=== PATIENT | female | born 1990 | race Caucasian/White ===

== ENCOUNTER 2016-08-25 17:10 | Observation (INO) | payer SELFPAY ==
[2016-08-25] MEDS ORDERED: IV RINGERS,LACTATED 1000ML 1,000 ML IV SCH (17:50)
[2016-08-25 17:59] LABS: BILIRUBIN,URINE NEGATIVE (NEG); GLUCOSE,URINE NEGATIVE (NEG); NITRITE,URINE NEGATIVE (NEG); PROTEIN,URINE NEGATIVE (NEG-TRACE); UROBILINOGEN,URINE 0.2 mg/dL (0.2 mg/dL)
[2016-08-25 18:21] LABS: BACTERIA,URINE FEW /HPF (0-FEW); RBC,URINE 0 /HPF (0-2); SQUAMOUS EPITHELIAL CELL,UR FEW /LPF
== END 2016-08-25 18:45 | disposition home or self-care (01) ==
LOC: 3 SO LND 17:10
PROVIDERS: ADMIT Obstetrics & Gynecology; ATTEND Obstetrics & Gynecology
DX: O26.892 Other specified pregnancy related conditions, second trimester (principal); R10.9 Unspecified abdominal pain; R21 Rash and other nonspecific skin eruption; M54.9 Dorsalgia, unspecified; Z3A.20 20 weeks gestation of pregnancy
CPT/HCPCS: 81001; 87086; G0378; G0379

== ENCOUNTER 2017-01-26 14:02 | Emergency (ER) | payer OTHER ==
[~2017-01-26] VITALS: Ht 170.2 cm; Wt 79.4 kg
[2017-01-26 14:45] LABS: BILIRUBIN,URINE NEGATIVE (NEG); GLUCOSE,URINE NEGATIVE (NEG); NITRITE,URINE NEGATIVE (NEG); PH,URINE 7.5; PROTEIN,URINE NEGATIVE (NEG-TRACE); UROBILINOGEN,URINE 0.2 mg/dL (0.2 mg/dL)
[2017-01-26 14:48] LABS: NEG OBC UR NEG; POS OBC UR POS
[2017-01-26 14:53] LABS: BACTERIA,URINE FEW /HPF (0-FEW); RBC,URINE 0 /HPF (0-2); SQUAMOUS EPITHELIAL CELL,UR OCC /LPF
[2017-01-26] MEDS ORDERED: fentaNYL PF VIAL 100 MCG/2 ML VIAL IV ONE (15:00)
--- NOTE | 2017-01-26 15:02 | PHYS DOC ---
Past Medical History Past Medical History: Anxiety, Asthma Past Surgical History: Cholecystectomy Alcohol Use: None Drug Use: Marijuana Adult General Chief Complaint Chief Complaint: abdominal pain HPI HPI Patient is a 26 year old female who presents with left lower abdominal pain. She's had this pain intermittently for months, worsens with movement, rotation, sitting up or using abdominal muscles. She was previously with the pain and told that it would resolve after delivering. She had a normal vaginal delivery one month ago but the pain has returned and is worse. She is taking ibuprofen and Tylenol without relief of her symptoms, no reported fever or dysuria, she has noted some vaginal discharge, the lochia had resolved and she had some pink tinged discharge. She was treated for Chlamydia early in her . She also reports that she's had loose stools for one month. She was seen at her post delivery appointment and given a shot of antibiotics and placed on Flagyl. 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 sHe was told that she has fibroids Review of Systems Review of Systems Constitutional: Denies fever or chills Eyes: Denies eye pain or discharge HENT: Denies nasal congestion or sore throat Respiratory: Denies cough or shortness of breath [] Cardiovascular: Denies chest pain or edema GI: per hpi : Denies dysuria Musculoskeletal: Denies back pain Extremities: denies joint pain [] Integument: Denies rash Neurologic: Denies headache, denies focal weakness , denies sensory changes [] Current Medications Current Medications Current Medications Medications (Trade) Dose Ordered Sig/Delmer Start Time Stop Time Status Last Admin Dose Admin Fentanyl Citrate (Fentanyl 2ml Vial) 50 mcg 1X ONCE 01/26/17 15:00 01/26/17 15:01 DC 01/26/17 15:58 50 MCG Info (Do NOT chart on this entry -- for MONITORING) 1 each PRN DAILY PRN 01/26/17 15:15 01/28/17 15:14 Iohexol (Omnipaque 300 Mg/ml) 75 ml 1X ONCE 01/26/17 15:15 01/26/17 15:16 DC 01/26/17 15:27 75 ML Allergies Allergies Allergies Coded Allergies Type Severity Reaction Last Updated Verified haloperidol Allergy Severe 08/25/16 Yes ketorolac Allergy Intermediate Itching 08/25/16 Yes Physical Exam Physical Exam Constitutional: Well developed, well nourished, no acute distress, non-toxic appearance. [] HENT: Normocephalic, atraumatic, bilateral external ears normal, oropharynx moist, no oral exudates, nose normal. [] Eyes: PERRLA, EOMI, conjunctiva normal, no discharge. [] Neck: Normal range of motion, no tenderness, supple, no stridor. [] Cardiovascular:Heart rate regular with regular rhythm, no murmur [] Lungs & Thorax: Bilateral breath sounds clear to auscultation, no wheeze or crackles Abdomen: Bowel sounds normal, soft, distended, tenderness palpation the left lower quadrant, no adnexal tenderness , negative McBurney's, no guarding or peritoneal signs : Yellow discharge, no CMT, closed cervix, no blood noted in the vaginal vault , no adnexal tenderness or mass Skin: Warm, dry, no erythema, no rash. [] Back: No tenderness, no CVA tenderness. [] Extremities: No tenderness, no cyanosis, no clubbing, ROM intact, no edema. [] Neurologic: Alert and oriented X 3, normal motor function, normal sensory function, no focal deficits noted. [] Psychologic: Affect normal, judgement normal, mood normal. [] Current Patient Data Vital Signs Vital Signs Date Time Temp Pulse Resp B/P (MAP) Pulse Ox O2 Delivery O2 Flow Rate FiO2 01/26/17 15:58 57 14 137/77 (97) 98 Room Air 01/26/17 14:23 97.7 97.7 Lab Values Laboratory Tests Test 01/26/17 14:35 01/26/17 14:37 01/26/17 15:02 Urine Color Yellow Urine Clarity Clear Urine pH 7.5 Urine Specific [place] 1.025 Urine Protein Negative mg/dL (NEG-TRACE) Urine Glucose (UA) Negative mg/dL (NEG) Urine Ketones (Stick) Negative mg/dL (NEG) Urine Blood Negative (NEG) Urine Nitrite Negative (NEG) Urine Bilirubin Negative (NEG) Urine Urobilinogen Dipstick 0.2 mg/dL (0.2 mg/dL) Urine Leukocyte Esterase Trace (NEG) Urine RBC 0 /HPF (0-2) Urine WBC 1-4 /HPF (0-4) Urine Squamous Epithelial Cells Occ /LPF Urine Bacteria Few /HPF (0-FEW) Urine Mucus Mod /LPF Urine Test Negative (NEG) POC Urine HCG, Qualitative Hcg negative (Negative) White Blood Count 7.8 x10^3/uL (4.0-11.0) Red Blood Count 4.55 x10^6/uL (3.50-5.40) Hemoglobin 13.4 g/dL (12.0-15.5) Hematocrit 40.0 % (36.0-47.0) Mean Corpuscular Volume 88 fL (79-100) Mean Corpuscular Hemoglobin 29 pg (25-35) Mean Corpuscular Hemoglobin Concent 34 g/dL (31-37) Red Cell Distribution Width 13.3 % (11.5-14.5) Platelet Count 306 x10^3/uL (140-400) Neutrophils (%) (Auto) 59 % (31-73) Lymphocytes (%) (Auto) 33 % (24-48) Monocytes (%) (Auto) 6 % (0-9) Eosinophils (%) (Auto) 2 % (0-3) Basophils (%) (Auto) 1 % (0-3) Neutrophils # (Auto) 4.6 x10^3uL (1.8-7.7) Lymphocytes # (Auto) 2.6 x10^3/uL (1.0-4.8) Monocytes # (Auto) 0.4 x10^3/uL (0.0-1.1) Eosinophils # (Auto) 0.2 x10^3/uL (0.0-0.7) Basophils # (Auto) 0.0 x10^3/uL (0.0-0.2) Laboratory Tests 01/26/17 15:02 Microbiology 01/26/17 Wet Prep - Final, Complete EKG EKG [] Radiology/Procedures Radiology/Procedures CT abdomen and pelvis: Impression: No acute abnormality is identified. Course & Med Decision Making Course & Med Decision Making Pertinent Labs and Imaging studies reviewed. (See chart for details) Reports she is not driving, 1 L of IV fluids and fentanyl was given. CT abdomen and pelvis ordered along with lab work and urinalysis. Wet prep sent along with gonorrhea and chlamydia PCR No acute infections, lab abnormality or findings on CT. Pt with possible endometriosis. She has f/u on 02/02, encourage pt's to keep appointment and continue ibuprofen/Tylenol, add heating pad as needed. Dragon Disclaimer Dragon Disclaimer This electronic medical record was generated, in whole or in part, using a voice recognition dictation system. Departure Departure Impression: Primary Impression: Abdominal pain Disposition: 01 HOME, SELF-CARE Condition: STABLE Referrals: NO PCP (PCP) NAY TRACEY MD Jan 26, 2017 15:02
[2017-01-26 15:09] LABS: BASO % 1 % (0-3); EOS % 2 % (0-3); HEMOGLOBIN 13.4 g/dL (12.0-15.5); LYMPH # 2.6 x10^3/uL (1.0-4.8); LYMPH % 33 % (24-48); MEAN CORPUSCULAR HEMOGLOBIN 29 pg (25-35); MEAN CORPUSCULAR HGB CONC 34 g/dL (31-37); MEAN CORPUSCULAR VOLUME 88 fL (79-100); MONO % 6 % (0-9); NEUT % 59 % (31-73); PLATELET COUNT 306 x10^3/uL (140-400); RED BLOOD COUNT 4.55 x10^6/uL (3.50-5.40); RED CELL DISTRIBUTION WIDTH 13.3 % (11.5-14.5); WHITE BLOOD COUNT 7.8 x10^3/uL (4.0-11.0)
[2017-01-26] MEDS ORDERED: IOHEXOL 300 MG/ML 100ML VIAL. IV ONE (15:15)
[2017-01-26] MEDS ORDERED: CONTRAST GIVEN MC PRN (15:15)
--- NOTE | 2017-01-26 16:11 | RAD ---
Indication: Left lower quadrant pain. Axial imaging through the abdomen and pelvis was performed after the administration of intravenous contrast. No prior studies are available for comparison. The lung bases are clear. The liver is unremarkable. The gallbladder is surgically absent. The pancreas and spleen are unremarkable. No adrenal mass is detected. Kidneys are unremarkable. Aorta is nonaneurysmal. The small and large bowel loops are normal caliber. No obstruction is seen. There is no ascites. No inflammatory process is seen. The bladder and uterus are unremarkable. Impression: No acute abnormality is identified.
[2017-01-26] MEDS ORDERED: ONDANSETRON PF 4 MG/2 ML VIAL. IV ONE (16:45)
[2017-01-26] MEDS ORDERED: KETOROLAC 30 MG/ML INJ. IV ONE (16:45)
[2017-01-26 16:59] VITALS: BP 115/67
--- NOTE | 2017-01-28 15:07 | VNOTE ---
CALL BACK NOTE CALL BACK Microbiology 01/26/17 Wet Prep - Final, Complete 01/26/17 Urine Culture - Final, Complete 01/26/17 Urine Culture Result 1 (TOYA) - Final, Complete Patient is positive for chlamydia and was not treated. Called patient spoke to her and gave her results, education and prescription for azithromycin one gram called into [facility] on [address] and state SEA BRAN APRN Jan 28, 2017 15:07
== END 2017-01-26 17:06 | disposition home or self-care (01) ==
LOC: ER 14:02
DX: O90.89 Other complications of the puerperium, not elsewhere classified (principal); R10.32 Left lower quadrant pain; N89.8 Other specified noninflammatory disorders of vagina; J45.909 Unspecified asthma, uncomplicated; F41.9 Anxiety disorder, unspecified; F12.10 Cannabis abuse, uncomplicated; Z90.49 Acquired absence of other specified parts of digestive tract; Z98.890 Other specified postprocedural states; Z88.8 Allergy status to other drugs, medicaments and biological substances
CPT/HCPCS: 36415; 74177; 80047; 81001; 81025; 85025; 87086; 87491; 87591; 96374; 96375; 99285; J1885; J2405; J3010; Q0111; Q9967

== ENCOUNTER 2017-02-09 22:00 | Emergency (ER) | payer OTHER ==
[~2017-02-09] VITALS: Ht 170.2 cm; Wt 79.4 kg
--- NOTE | 2017-02-09 22:21 | PHYS DOC ---
Past Medical History Past Medical History: Anxiety, Asthma Past Surgical History: Cholecystectomy Alcohol Use: None Drug Use: Marijuana Adult General Chief Complaint Chief Complaint: ABDOMINAL PAIN HPI HPI Patient is a 26 year old female who presents with with lower quadrant pain. She states been going on for over a month. She states she had a history of chlamydia for 11 months and nobody treated it. She was treated 2 weeks ago after she gave to her son. She states the pain over the last couple days as gotten worse. She states she's has a history of ovarian cysts. She denies any fevers or chills. She states she's having vaginal bleeding. She states she took her azithromycin as she was prescribed when she was diagnosed with Chlamydia 2 weeks ago. Review of Systems Review of Systems Constitutional: Denies fever or chills [] Eyes: Denies change in visual acuity, redness, or eye pain [] HENT: Denies nasal congestion or sore throat [] Respiratory: Denies cough or shortness of breath [] Cardiovascular: No additional information not addressed in HPI [] GI: Positive for abdominal pain, Deniesnausea, vomiting, bloody stools or diarrhea [] : Denies dysuria or hematuria [] Musculoskeletal: Denies back pain or joint pain [] Integument: Denies rash or skin lesions [] Neurologic: Denies headache, focal weakness or sensory changes [] Endocrine: Denies polyuria or polydipsia [] All other systems were reviewed and found to be within normal limits, except as documented in this note. Current Medications Current Medications Current Medications Medications (Trade) Dose Ordered Sig/Delmer Start Time Stop Time Status Last Admin Dose Admin Acetaminophen/ Hydrocodone Bitart (Lortab 5/325) 2 tab 1X ONCE 02/10/17 02:15 02/10/17 02:16 DC 02/10/17 02:18 2 TAB Fentanyl Citrate (Fentanyl 2ml Vial) 50 mcg PRN Q15MIN PRN 02/09/17 23:00 02/10/17 02:25 DC 02/09/17 23:36 50 MCG Hydromorphone HCl (Dilaudid) 1 mg PRN Q15MIN PRN 02/10/17 00:00 02/10/17 02:25 DC 02/10/17 01:07 1 MG Info (Do NOT chart on this entry -- for MONITORING) 1 each PRN DAILY PRN 12/4/17 23:30 02/10/17 02:25 DC Iohexol (Omnipaque 300 Mg/ml) 75 ml 1X ONCE 02/09/17 23:30 02/09/17 23:31 DC 02/09/17 23:49 75 ML Ondansetron HCl (Zofran) 4 mg 1X ONCE 02/09/17 23:00 02/09/17 23:01 DC 02/09/17 23:00 4 MG Sodium Chloride 1,000 ml @ 1,000 mls/hr Q1H 02/09/17 23:00 02/09/17 23:59 DC 02/09/17 23:00 1,000 MLS/HR Allergies Allergies Allergies Coded Allergies Type Severity Reaction Last Updated Verified haloperidol Allergy Severe 08/25/16 Yes ketorolac Allergy Intermediate Itching 08/25/16 Yes Physical Exam Physical Exam Constitutional: Well developed, well nourished, no acute distress, non-toxic appearance. [] HENT: Normocephalic, atraumatic, bilateral external ears normal, oropharynx moist, no oral exudates, nose normal. [] Eyes: PERRLA, EOMI, conjunctiva normal, no discharge. [] Neck: Normal range of motion, no tenderness, supple, no stridor. [] Cardiovascular:Heart rate regular rhythm, no murmur [] Lungs & Thorax: Bilateral breath sounds clear to auscultation [] Abdomen/pelvic exam: Bowel sounds normal, soft, tender palpation left lower quadrant, no masses, no pulsatile masses. Team Supervisor was present, normal external genitalia, no cervical motion tenderness, left adnexal tenderness appreciated, no vaginal discharge appreciated Skin: Warm, dry, no erythema, no rash. [] Back: No tenderness, no CVA tenderness. [] Extremities: No tenderness, no cyanosis, no clubbing, ROM intact, no edema. [] Neurologic: Alert and oriented X 3, normal motor function, normal sensory function, no focal deficits noted. [] Psychologic: Affect normal, judgement normal, mood normal. [] Current Patient Data Vital Signs Vital Signs Date Time Temp Pulse Resp B/P (MAP) Pulse Ox O2 Delivery O2 Flow Rate FiO2 02/10/17 02:08 114 120/68 (85) 95 Room Air 02/09/17 22:47 98.3 22 98.3 Lab Values Laboratory Tests Test 02/09/17 22:15 02/09/17 22:34 02/09/17 22:40 Urine Collection Type Unknown Urine Color Yellow Urine Clarity Cloudy Urine pH 6.0 Urine Specific [place] 1.020 Urine Protein Negative mg/dL (NEG-TRACE) Urine Glucose (UA) Negative mg/dL (NEG) Urine Ketones (Stick) Negative mg/dL (NEG) Urine Blood Moderate (NEG) Urine Nitrite Negative (NEG) Urine Bilirubin Negative (NEG) Urine Urobilinogen Dipstick 0.2 mg/dL (0.2 mg/dL) Urine Leukocyte Esterase Small (NEG) Urine RBC 0 /HPF (0-2) Urine WBC 1-4 /HPF (0-4) Urine Squamous Epithelial Cells Mod /LPF Urine Bacteria Few /HPF (0-FEW) Urine Mucus Slight /LPF Urine Test Negative (NEG) Urine Opiates Screen Neg (NEG) Urine Methadone Screen Neg (NEG) Urine Barbiturates Neg (NEG) Urine Phencyclidine Screen Neg (NEG) Urine Amphetamine/Methamphetamine Neg (NEG) Urine Benzodiazepines Screen Pos (NEG) Urine Cocaine Screen Neg (NEG) Urine Cannabinoids Screen Pos (NEG) Urine Ethyl Alcohol Neg (NEG) POC Urine HCG, Qualitative Hcg negative (Negative) White Blood Count 7.4 x10^3/uL (4.0-11.0) Red Blood Count 4.57 x10^6/uL (3.50-5.40) Hemoglobin 13.4 g/dL (12.0-15.5) Hematocrit 39.4 % (36.0-47.0) Mean Corpuscular Volume 86 fL (79-100) Mean Corpuscular Hemoglobin 29 pg (25-35) Mean Corpuscular Hemoglobin Concent 34 g/dL (31-37) Red Cell Distribution Width 13.7 % (11.5-14.5) Platelet Count 364 x10^3/uL (140-400) Neutrophils (%) (Auto) 39 % (31-73) Lymphocytes (%) (Auto) 51 % (24-48) H Monocytes (%) (Auto) 6 % (0-9) Eosinophils (%) (Auto) 3 % (0-3) Basophils (%) (Auto) 1 % (0-3) Neutrophils # (Auto) 2.9 x10^3uL (1.8-7.7) Lymphocytes # (Auto) 3.8 x10^3/uL (1.0-4.8) Monocytes # (Auto) 0.4 x10^3/uL (0.0-1.1) Eosinophils # (Auto) 0.2 x10^3/uL (0.0-0.7) Basophils # (Auto) 0.1 x10^3/uL (0.0-0.2) Prothrombin Time 12.4 SEC (11.7-14.0) Prothrombin Time INR 1.0 (0.8-1.1) PTT 32 SEC (24-38) Sodium Level 141 mmol/L (136-145) Potassium Level 4.0 mmol/L (3.5-5.1) Chloride Level 105 mmol/L (98-107) Carbon Dioxide Level 27 mmol/L (21-32) Anion Gap 9 (6-14) Blood Urea Nitrogen 16 mg/dL (7-20) Creatinine 0.9 mg/dL (0.6-1.0) Estimated GFR (Cockcroft-Gault) 75.7 Glucose Level 100 mg/dL (70-99) H Calcium Level 9.2 mg/dL (8.5-10.1) Total Bilirubin 0.3 mg/dL (0.2-1.0) Direct Bilirubin < 0.1 mg/dL (0.0-0.2) Aspartate Amino Transferase (AST) 18 U/L (15-37) Alanine Aminotransferase (ALT) 25 U/L (14-59) Alkaline Phosphatase 60 U/L (46-116) Creatine Kinase 63 U/L (26-192) Total Protein 7.6 g/dL (6.4-8.2) Albumin 3.5 g/dL (3.4-5.0) Lipase 91 U/L (73-393) Laboratory Tests 02/09/17 22:40 Laboratory Tests 02/09/17 22:40 Microbiology 02/10/17 Wet Prep - Final, Complete Microbiology 02/10/17 Wet Prep - Final, Complete EKG EKG [] Radiology/Procedures Radiology/Procedures [facility] [address] [place] [address] IMAGING REPORT Signed PATIENT: MATEO PECK ACCOUNT: [id number] : 1990 LOCATION: ER AGE: 26 SEX: F EXAM STATUS: REG ER ORD. PHYSICIAN: DARIO COURTNEY MD REASON: pelvic pain PROCEDURE: PELVIS COMPLETE INDICATION: PELVIC PAIN ABNORMAL CT COMPARISON: CT from one day prior TECHNIQUE: Grayscale and color ultrasound images uterus and adnexa. Transabdominal and transvaginal images obtained. FINDINGS: Uterus: 101 x 56 x 49 mm. Endometrial Stripe: 8 mm. Right Ovary: 38 x 20 x 14 mm. Left Ovary: 39 x 30 x 28 mm. Vascular flow identified to bilateral ovaries. Trace free fluid is suspected. 26 x 23 mm left ovarian cyst. There is an additional lesion anterior to the left ovary which is not well evaluated on this examination secondary to patient pain IMPRESSION: 1. Left ovarian cyst is identified. 2. In addition there is a lesion anterior to left ovary which is not well evaluated at this time secondary to patient pain and location of the lesion. A follow-up examination could be obtained at a later time to assess this structure given that it could not be well evaluated on this examination. Electronically signed by: Dwayne Gonzalez MD (02/10/2017 1:26 AM) [facility] DICTATED and SIGNED BY: DWAYNE GONZALEZ MD DATE: 02/10/17114 CC: DARIO COURTNEY MD; NO PCP ~ [facility] [address] [place] [address] IMAGING REPORT Signed PATIENT: MATEO PECK ACCOUNT: [id number] : 1990 LOCATION: ER AGE: 26 SEX: F EXAM STATUS: REG ER ORD. PHYSICIAN: DARIO COURTNEY MD REASON: llq pain PROCEDURE: CT ABD PELV W/ IV CONTRST ONLY CT abdomen and pelvis with contrast 02/09/2017 CLINICAL INDICATION: Abdominal pain and nausea. Vaginal bleeding. COMPARISON: CT abdomen and pelvis 01/26/2017 TECHNIQUE: Multiple CT images of the abdomen and pelvis were obtained following the intravenous and ministration of 75 mL Omnipaque 300. DeGraff *One or more of the following individualized dose reduction techniques were utilized for this examination: 1. Automated exposure control. 2. Adjustment of the mA and/or kV according to patient size. 3. Use of iterative reconstruction technique. FINDINGS: Heart size is normal. Visualized lung bases are clear. Liver, spleen, adrenal glands, and pancreas are unremarkable. 2 mm nonobstructive calculus in the inferior pole the right kidney and two 2 mm nonobstructive calculi in the left kidney. Prior cholecystectomy. No intra or extrahepatic biliary ductal dilatation. Abdominal aorta is normal in caliber. No retroperitoneal or mesenteric lymphadenopathy. Small and large bowel loops are normal in caliber without obstruction. Appendix is normal in appearance. No abdominal free fluid. Mildly distended unopacified urinary bladder unremarkable. Uterus is present though incompletely evaluated by CT. There is a left ovarian cystic structure measuring 2.4 cm. Anterior to the left ovary, there is a hypodensity which is not clearly cystic measuring 2.6 x 1.9 cm series 2/image 72. There are no destructive osseous lesions. IMPRESSION: 1. Probable left ovarian cyst and 2.6 cm and a hypodense structure immediately anterior to the left ovary which is not definitively cystic. Although the finding may represent a complicated ovarian or parovarian cyst, ovarian neoplasm cannot be definitively excluded by CT. Transvaginal pelvic ultrasound is recommended for further evaluation. 2. A few nonobstructive bilateral nephrolithiasis. Electronically signed by: John Bradley MD (02/09/2017 11:46 PM) [facility] DICTATED and SIGNED BY: JOHN BRADLEY MD DATE: 02/09/17 3451 CC: DARIO COURTNEY MD; NO PCP ~ [facility] [address] [place] [address] IMAGING REPORT Signed PATIENT: MATEO PECK ACCOUNT: [id number] : 1990 LOCATION: ER AGE: 26 SEX: F EXAM STATUS: REG ER ORD. PHYSICIAN: DARIO COURTNEY MD REASON: llq pain PROCEDURE: CT ABD PELV W/ IV CONTRST ONLY CT abdomen and pelvis with contrast 02/09/2017 CLINICAL INDICATION: Abdominal pain and nausea. Vaginal bleeding. COMPARISON: CT abdomen and pelvis 01/26/2017 TECHNIQUE: Multiple CT images of the abdomen and pelvis were obtained following the intravenous and ministration of 75 mL Omnipaque 300. DeGraff *One or more of the following individualized dose reduction techniques were utilized for this examination: 1. Automated exposure control. 2. Adjustment of the mA and/or kV according to patient size. 3. Use of iterative reconstruction technique. FINDINGS: Heart size is normal. Visualized lung bases are clear. Liver, spleen, adrenal glands, and pancreas are unremarkable. 2 mm nonobstructive calculus in the inferior pole the right kidney and two 2 mm nonobstructive calculi in the left kidney. Prior cholecystectomy. No intra or extrahepatic biliary ductal dilatation. Abdominal aorta is normal in caliber. No retroperitoneal or mesenteric lymphadenopathy. Small and large bowel loops are normal in caliber without obstruction. Appendix is normal in appearance. No abdominal free fluid. Mildly distended unopacified urinary bladder unremarkable. Uterus is present though incompletely evaluated by CT. There is a left ovarian cystic structure measuring 2.4 cm. Anterior to the left ovary, there is a hypodensity which is not clearly cystic measuring 2.6 x 1.9 cm series 2/image 72. There are no destructive osseous lesions. IMPRESSION: 1. Probable left ovarian cyst and 2.6 cm and a hypodense structure immediately anterior to the left ovary which is not definitively cystic. Although the finding may represent a complicated ovarian or parovarian cyst, ovarian neoplasm cannot be definitively excluded by CT. Transvaginal pelvic ultrasound is recommended for further evaluation. 2. A few nonobstructive bilateral nephrolithiasis. Electronically signed by: John Bradley MD (02/09/2017 11:46 PM) [facility] DICTATED and SIGNED BY: JOHN BRADLEY MD DATE: 02/09/17 4758 CC: DARIO COURTNEY MD; NO PCP ~ Impressions: Abdominal pain Course & Med Decision Making Course & Med Decision Making Pertinent Labs and Imaging studies reviewed. (See chart for details) I've offered admission to the patient however she does not want to be admitted to she has children to take care of at home. 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 [place] Disclaimer [place] Disclaimer This electronic medical record was generated, in whole or in part, using a voice recognition dictation system. Departure Departure Impression: Primary Impression: Pelvic pain Disposition: 01 HOME, SELF-CARE Condition: STABLE Referrals: NO PCP (PCP) PAT RICO MD Patient Instructions: Abdominal Pain Additional Instructions: Your blood work and CT scan does not show any acute abnormalities. On ultrasound you have a cyst on your left ovary and another potential mass that needs to be evaluated. I've offered you admission to the hospital help control your pain and you do not want to be admitted. You received IV pain meds and being discharged with [place] which is a narcotic pain med. Please don't drink alcohol or drive your car while taking this medicine as it can impair judgment and make you sleepy. You need to follow-up with Dr. Fernández. Please call her office in the morning and schedule a follow-up appointment. Return back to ER if your pain gets worse, you have high fevers, uncontrolled nausea vomiting, vaginal bleeding or other concerns. Scripts Hydrocodone/Apap 5-325 (NORCO 5-325 TABLET) 1 Each Tablet 1-2 TAB PO PRN Q6HRS Y for PAIN, #12 TAB 0 Refills Prov: DARIO COURTNEY MD 02/10/17 DARIO COURTNEY MD Feb 09, 2017 22:21
[2017-02-09 22:43] LABS: BILIRUBIN,URINE NEGATIVE (NEG); GLUCOSE,URINE NEGATIVE (NEG); NITRITE,URINE NEGATIVE (NEG); PROTEIN,URINE NEGATIVE (NEG-TRACE); UROBILINOGEN,URINE 0.2 mg/dL (0.2 mg/dL)
[2017-02-09 22:49] LABS: NEG OBC UR NEG; POS OBC UR POS
[2017-02-09 22:57] LABS: BASO # 0.1 x10^3/uL (0.0-0.2); BASO % 1 % (0-3); EOS % 3 % (0-3); HEMATOCRIT 39.4 % (36.0-47.0); HEMOGLOBIN 13.4 g/dL (12.0-15.5); LYMPH # 3.8 x10^3/uL (1.0-4.8); LYMPH % 51 % (24-48); MEAN CORPUSCULAR HEMOGLOBIN 29 pg (25-35); MEAN CORPUSCULAR HGB CONC 34 g/dL (31-37); MEAN CORPUSCULAR VOLUME 86 fL (79-100); MONO % 6 % (0-9); NEUT % 39 % (31-73); PLATELET COUNT 364 x10^3/uL (140-400); RED BLOOD COUNT 4.57 x10^6/uL (3.50-5.40); RED CELL DISTRIBUTION WIDTH 13.7 % (11.5-14.5); WHITE BLOOD COUNT 7.4 x10^3/uL (4.0-11.0)
[2017-02-09 22:59] LABS: BACTERIA,URINE FEW /HPF (0-FEW); RBC,URINE 0 /HPF (0-2); SQUAMOUS EPITHELIAL CELL,UR MOD /LPF
[2017-02-09] MEDS ORDERED: ONDANSETRON PF 4 MG/2 ML VIAL. IV ONE (23:00)
[2017-02-09] MEDS ORDERED: IV NORMAL SALINE 1000ML BAG 1,000 ML IV SCH (23:00)
[2017-02-09] MEDS: fentaNYL PF VIAL 100 MCG/2 ML VIAL IV PRN ×2 (23:00→23:36)
[2017-02-09 23:06] LABS: PROTHROMBIN TIME PATIENT 12.4 SEC (11.7-14.0)
[2017-02-09 23:11] LABS: ANION GAP 9 (6-14); BLOOD UREA NITROGEN 16 mg/dL (7-20); CALCIUM 9.2 mg/dL (8.5-10.1); CARBON DIOXIDE 27 mmol/L (21-32); CHLORIDE 105 mmol/L (98-107); CREATININE 0.9 mg/dL (0.6-1.0); GFR 75.7; GLUCOSE 100 mg/dL (70-99); SODIUM 141 mmol/L (136-145)
[2017-02-09 23:18] LABS: ALBUMIN 3.5 g/dL (3.4-5.0); ALK PHOS 60 U/L (46-116); ALT (SGPT) 25 U/L (14-59); AST (SGOT) 18 U/L (15-37); CREATINE KINASE 63 U/L (26-192); DIRECT BILIRUBIN < 0.1 mg/dL (0.0-0.2); TOTAL BILIRUBIN 0.3 mg/dL (0.2-1.0); TOTAL PROTEIN 7.6 g/dL (6.4-8.2)
[2017-02-09] MEDS ORDERED: IOHEXOL 300 MG/ML 100ML VIAL. IV ONE (23:30)
[2017-02-09] MEDS ORDERED: CONTRAST GIVEN MC PRN (23:30)
[2017-02-09 23:32] LABS: BARBITURATES NEG (NEG); BENZODIAZEPINES POS (NEG); CANNABINOIDS POS (NEG); COCAINE NEG (NEG); METHADONE NEG (NEG); OPIATES NEG (NEG); PHENCYCLIDINE NEG (NEG)
--- NOTE | 2017-02-09 23:50 | RAD ---
CT abdomen and pelvis with contrast 02/09/2017 CLINICAL INDICATION: Abdominal pain and nausea. Vaginal bleeding. COMPARISON: CT abdomen and pelvis 01/26/2017 TECHNIQUE: Multiple CT images of the abdomen and pelvis were obtained following the intravenous and ministration of 75 mL Omnipaque 300. DeGraff *One or more of the following individualized dose reduction techniques were utilized for this examination: 1. Automated exposure control. 2. Adjustment of the mA and/or kV according to patient size. 3. Use of iterative reconstruction technique. FINDINGS: Heart size is normal. Visualized lung bases are clear. Liver, spleen, adrenal glands, and pancreas are unremarkable. 2 mm nonobstructive calculus in the inferior pole the right kidney and two 2 mm nonobstructive calculi in the left kidney. Prior cholecystectomy. No intra or extrahepatic biliary ductal dilatation. Abdominal aorta is normal in caliber. No retroperitoneal or mesenteric lymphadenopathy. Small and large bowel loops are normal in caliber without obstruction. Appendix is normal in appearance. No abdominal free fluid. Mildly distended unopacified urinary bladder unremarkable. Uterus is present though incompletely evaluated by CT. There is a left ovarian cystic structure measuring 2.4 cm. Anterior to the left ovary, there is a hypodensity which is not clearly cystic measuring 2.6 x 1.9 cm series 2/image 72. There are no destructive osseous lesions. IMPRESSION: 1. Probable left ovarian cyst and 2.6 cm and a hypodense structure immediately anterior to the left ovary which is not definitively cystic. Although the finding may represent a complicated ovarian or parovarian cyst, ovarian neoplasm cannot be definitively excluded by CT. Transvaginal pelvic ultrasound is recommended for further evaluation. 2. A few nonobstructive bilateral nephrolithiasis. Electronically signed by: Thiago Bradley MD (02/09/2017 11:46 PM) [facility]
[2017-02-09] MEDS: HYDROmorphone 2 MG/ML VIAL IV/SQ PRN (23:55)
[2017-02-10] MEDS: HYDROmorphone 2 MG/ML VIAL IV/SQ PRN ×3 (00:12→01:07)
--- NOTE | 2017-02-10 01:29 | RAD ---
INDICATION: PELVIC PAIN ABNORMAL CT COMPARISON: CT from one day prior TECHNIQUE: Grayscale and color ultrasound images uterus and adnexa. Transabdominal and transvaginal images obtained. FINDINGS: Uterus: 101 x 56 x 49 mm. Endometrial Stripe: 8 mm. Right Ovary: 38 x 20 x 14 mm. Left Ovary: 39 x 30 x 28 mm. Vascular flow identified to bilateral ovaries. Trace free fluid is suspected. 26 x 23 mm left ovarian cyst. There is an additional lesion anterior to the left ovary which is not well evaluated on this examination secondary to patient pain IMPRESSION: 1. Left ovarian cyst is identified. 2. In addition there is a lesion anterior to left ovary which is not well evaluated at this time secondary to patient pain and location of the lesion. A follow-up examination could be obtained at a later time to assess this structure given that it could not be well evaluated on this examination. Electronically signed by: Tayo Lynn MD (02/10/2017 1:26 AM) [facility]
[2017-02-10 02:08] VITALS: BP 120/68
[2017-02-10] MEDS ORDERED: HYDR-971 PO (02:10)
[2017-02-10] MEDS ORDERED: HYDROcodone/APAP 5/325MG 1 TAB TABLET PO ONE (02:15)
== END 2017-02-10 02:25 | disposition home or self-care (01) ==
LOC: ER 22:00
DX: R10.2 Pelvic and perineal pain (principal); F41.9 Anxiety disorder, unspecified; J45.909 Unspecified asthma, uncomplicated; N93.9 Abnormal uterine and vaginal bleeding, unspecified; F12.10 Cannabis abuse, uncomplicated; Z90.49 Acquired absence of other specified parts of digestive tract; Z88.8 Allergy status to other drugs, medicaments and biological substances
CPT/HCPCS: 36415; 74177; 76856; 80048; 80076; 80307; 81001; 81025; 82550; 83690; 85025; 85610; 85730; 87086; 87491; 87591; 96361; 96374; 96375; 96376; 99285; J1170; J2405; J3010; J7030; Q0111; Q9967; G0479

== ENCOUNTER 2017-08-09 05:22 | Emergency (ER) | payer OTHER ==
[2017-08-09 05:49] LABS: URINE HCG POC HCG POSITIVE (Negative)
[2017-08-09 05:53] LABS: BILIRUBIN,URINE NEGATIVE (NEG); CLARITY,URINE CLEAR; COLOR,URINE YELLOW; GLUCOSE,URINE NEGATIVE (NEG); NITRITE,URINE NEGATIVE (NEG); PH,URINE 8.5; PROTEIN,URINE NEGATIVE (NEG-TRACE); UROBILINOGEN,URINE 0.2 mg/dL (0.2 mg/dL)
[2017-08-09 06:07] LABS: SQUAMOUS EPITHELIAL CELL,UR MANY /LPF
[2017-08-09] MEDS: MORPHINE SULFATE 10 MG/ML VIAL. IV (06:10)
[2017-08-09] MEDS: ONDANSETRON PF 4 MG/2 ML VIAL. IV (06:11)
[2017-08-09 06:12] LABS: ADD MAN DIFF? NO
[2017-08-09 06:18] LABS: AMORPHOUS SEDIMENT,UR PRESENT /HPF; BACTERIA,URINE FEW /HPF (0-FEW); RBC,URINE 0 /HPF (0-2); WBC,URINE OCC /HPF (0-4)
[2017-08-09 06:26] LABS: ANION GAP 8 (6-14); BASO % 1 % (0-3); BLOOD UREA NITROGEN 8 mg/dL (7-20); CALCIUM 8.6 mg/dL (8.5-10.1); CARBON DIOXIDE 25 mmol/L (21-32); CHLORIDE 102 mmol/L (98-107); CREATININE 0.7 mg/dL (0.6-1.0); EOS # 0.1 x10^3/uL (0.0-0.7); EOS % 2 % (0-3); GFR 101.1; GLUCOSE 86 mg/dL (70-99); HEMATOCRIT 32.7 % (36.0-47.0); HEMOGLOBIN 11.5 g/dL (12.0-15.5); LYMPH # 3.1 x10^3/uL (1.0-4.8); LYMPH % 38 % (24-48); MEAN CORPUSCULAR HEMOGLOBIN 30 pg (25-35); MEAN CORPUSCULAR HGB CONC 35 g/dL (31-37); MEAN CORPUSCULAR VOLUME 86 fL (79-100); MONO # 0.4 x10^3/uL (0.0-1.1); MONO % 5 % (0-9); NEUT # 4.4 x10^3uL (1.8-7.7); NEUT % 54 % (31-73); PLATELET COUNT 261 x10^3/uL (140-400); POTASSIUM 3.8 mmol/L (3.5-5.1); RED BLOOD COUNT 3.81 x10^6/uL (3.50-5.40); RED CELL DISTRIBUTION WIDTH 13.5 % (11.5-14.5); SODIUM 135 mmol/L (136-145); WHITE BLOOD COUNT 8.2 x10^3/uL (4.0-11.0)
[2017-08-09 06:32] LABS: ALBUMIN 3.2 g/dL (3.4-5.0); ALK PHOS 49 U/L (46-116); ALT (SGPT) 15 U/L (14-59); AST (SGOT) 11 U/L (15-37); DIRECT BILIRUBIN < 0.1 mg/dL (0.0-0.2); LIPASE 76 U/L (73-393); TOTAL BILIRUBIN 0.2 mg/dL (0.2-1.0); TOTAL PROTEIN 7.1 g/dL (6.4-8.2)
[2017-08-09] MEDS: HYDROcodone/APAP 5/325MG 1 TAB TABLET PO (07:11)
== END 2017-08-09 07:54 | disposition home or self-care (01) ==
LOC: ER 05:22
DX: O26.891 Other specified pregnancy related conditions, first trimester (principal); R10.84 Generalized abdominal pain; O99.511 Diseases of the respiratory system complicating pregnancy, first trimester; J45.909 Unspecified asthma, uncomplicated; Z90.49 Acquired absence of other specified parts of digestive tract
CPT/HCPCS: 36415; 76801; 80048; 80076; 81001; 81025; 83690; 84702; 85025; 86900; 86901; 96374; 96375; 99285-25; J2270; J2405

== ENCOUNTER 2018-08-04 00:19 | Emergency (ER) | payer MEDICAID, OTHER ==
[~2018-08-04] VITALS: Ht 170.2 cm; Wt 88.5 kg
[~2018-08-04 00:19] MED LIST: HYDR-3164 PO; ONDA8TAB12 PO; OXYC1TAB15 PO; VENTOLIN HFA18 GM INH
[2018-08-04 00:41] VITALS: BP 121/69
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
[2018-08-04] MEDS ORDERED: ONDANSETRON ODT 4 MG TAB.RAPDIS. PO ONE (01:00)
[2018-08-04] MEDS ORDERED: LIDOCAINE WITH 8.4% SOD BICARB 3 ML DISP.SYRIN. INJ ONE ×2 (01:00)
[2018-08-04 01:04] LABS: BILIRUBIN,URINE NEGATIVE (NEG); CLARITY,URINE CLEAR; COLOR,URINE YELLOW; NITRITE,URINE NEGATIVE (NEG); PROTEIN,URINE NEGATIVE (NEG-TRACE); UROBILINOGEN,URINE 0.2 mg/dL (0.2 mg/dL)
[2018-08-04 01:19] LABS: BACTERIA,URINE FEW /HPF (0-FEW); SQUAMOUS EPITHELIAL CELL,UR MOD /LPF
[2018-08-04] MEDS ORDERED: PROCHLORPERAZINE 10 MG/2 ML VIAL. IM ONE (01:30)
--- NOTE | 2018-08-04 02:02 | RAD ---
PQRS Compliance statement: One or more of the following individualized dose reduction techniques were utilized for this examination: 1. Automated exposure control. 2. Adjustment of the mA and/or kV according to patient size. 3. Use of iterative reconstruction technique. Indication:Injury TECHNIQUE: CT head without IV contrast COMPARISON: None FINDINGS: No pathologic extra-axial or intra-axial fluid collection. The ventricles and basal cisterns are within normal limits. No acute intracranial bleed. No large scalp hematoma. Orbits are within normal limits. No acute calvarial fracture. Visualized paranasal sinuses and mastoid air cells are clear. IMPRESSION: No acute intracranial bleed or calvarial fracture. Indication:Injury TECHNIQUE: CT of the cervical spine without IV contrast with multiplanar reformats. COMPARISON:None FINDINGS: Cervical spine is in normal anatomic alignment. No acute compression deformity. Facet joints are in normal anatomic alignment. No acute fractures. Noncontrast appearance of the neck soft tissue is within normal limits. Clear lung apices. IMPRESSION: No acute cervical spine fracture. Electronically signed by: Nathaniel Edmondson DO (08/04/2018 1:59 AM) [facility]
[2018-08-04] MEDS ORDERED: HYDROcodone/APAP 5/325MG 1 TAB TABLET PO ONE (02:30)
--- NOTE | 2018-08-04 03:12 | RAD ---
PROCEDURE: CHEST AP ONLY CLINICAL INDICATION: Injury COMPARISON: None FINDINGS: No pneumothorax identified. Cardiac and mediastinal contours unremarkable. No pulmonary consolidation or acute airspace disease. No acute osseous abnormalities identified. IMPRESSION: No pulmonary consolidation or acute airspace disease. Electronically signed by: Nathaniel Edmondson DO (08/04/2018 3:09 AM) [facility]
--- NOTE | 2018-08-04 03:21 | RAD ---
Indication:Injury TECHNIQUE: 3 views of right hand COMPARISON: None FINDINGS/ impression: No acute fracture or dislocation. Electronically signed by: Nathaniel Edmondson DO (08/04/2018 3:18 AM) [id number]
== END 2018-08-04 02:40 | disposition home or self-care (01) ==
LOC: ER 00:19
DX: S61.511A Laceration without foreign body of right wrist, initial encounter (principal); S09.8XXA Other specified injuries of head, initial encounter; J45.909 Unspecified asthma, uncomplicated; Z88.6 Allergy status to analgesic agent; Z88.8 Allergy status to other drugs, medicaments and biological substances; Y04.0XXA Assault by unarmed brawl or fight, initial encounter; Y93.89 Activity, other specified; Y92.89 Other specified places as the place of occurrence of the external cause; Y99.8 Other external cause status
CPT/HCPCS: 12002; 70450; 71045; 72125; 73130; 81001; 81025; 87086; 96372; 99285; J0780; Q0162

== ENCOUNTER 2018-11-06 00:54 | Emergency (ER) | payer MEDICAID ==
[~2018-11-06] VITALS: Ht 172.7 cm; Wt 88.5 kg
--- NOTE | 2018-11-06 01:15 | PHYS DOC ---
Past Medical History Past Medical History: Anxiety, Asthma, Other Additional Past Medical Histor: PCOS Past Surgical History: Cholecystectomy, Other Additional Past Surgical Histo: Exploratory Lap. for Poss. Ovarian Torsion, Biopsy Alcohol Use: None Drug Use: None Adult General Chief Complaint Chief Complaint: ABDOMINAL PAIN HPI HPI Patient is a 28-year-old female who presents with complaint of acute onset of lower abdominal pain/cramping that started about 2 hours ago. Patient rates her pain to be a 10 out of 10. She states the pain is worsened with movement. She states that she is feeling very nauseated but has not vomited. She denies any diarrhea. She states that nothing improves her pain.[] Review of Systems Review of Systems Constitutional: Denies fever or chills [] Respiratory: Denies cough or shortness of breath [] Cardiovascular: No additional information not addressed in HPI [] GI: Complains of lower abdominal pain with nausea. Denies vomiting or diarrhea [] : Denies dysuria or hematuria [] Neurologic: Denies headache, focal weakness or sensory changes [] All other systems were reviewed and found to be within normal limits, except as documented in this note. Current Medications Current Medications Current Medications Medications (Trade) Dose Ordered Sig/Delmer Start Time Stop Time Status Last Admin Dose Admin Dicyclomine HCl (Bentyl) 10 mg 1X ONCE 11/06/18 05:00 11/06/18 05:01 11/06/18 04:42 10 MG Diphenhydramine HCl (Benadryl) 25 mg 1X ONCE 11/06/18 02:30 11/06/18 02:31 DC 11/06/18 02:10 25 MG Metoclopramide HCl (Reglan Vial) 10 mg 1X ONCE 11/06/18 02:30 11/06/18 02:31 DC 11/06/18 02:10 10 MG Morphine Sulfate (Morphine Sulfate) 4 mg PRN Q15MIN PRN 11/06/18 01:15 11/07/18 01:14 11/06/18 02:33 4 MG Ondansetron HCl (Zofran) 4 mg 1X ONCE 11/06/18 01:30 11/06/18 01:31 DC 11/06/18 01:40 4 MG Sodium Chloride 1,000 ml @ 1,000 mls/hr Q1H 11/06/18 01:30 11/06/18 02:29 DC 11/06/18 01:40 1,000 MLS/HR Allergies Allergies Allergies Coded Allergies Type Severity Reaction Last Updated Verified haloperidol Allergy Severe 08/25/16 Yes ketorolac Allergy Intermediate Itching 08/25/16 Yes Physical Exam Physical Exam Constitutional: Well developed, well nourished, no acute distress, non-toxic appearance. [] HENT: Normocephalic, atraumatic, bilateral external ears normal, oropharynx moist, no oral exudates, nose normal. [] Eyes: PERRLA, EOMI, conjunctiva normal, no discharge. [] Neck: Normal range of motion, no tenderness, supple, no stridor. [] Cardiovascular: Regular rate and rhythm[] Lungs & Thorax: Bilateral breath sounds clear to auscultation [] Abdomen: Bowel sounds managed, soft, with lower abdominal tenderness. [] Skin: Warm, dry, no erythema, no rash. [] Extremities: No tenderness, no cyanosis, no clubbing, ROM intact, no edema. [] Neurologic: Alert and oriented X 3, no focal deficits noted. [] Current Patient Data Vital Signs Vital Signs Date Time Temp Pulse Resp B/P (MAP) Pulse Ox O2 Delivery O2 Flow Rate FiO2 11/06/18 02:33 20 97 Room Air 11/06/18 00:55 98.2 22 159/113 (128) 98.2 Lab Values Laboratory Tests Test 11/06/18 01:00 11/06/18 01:10 11/06/18 01:25 Urine Collection Type Unknown Urine Color Yellow Urine Clarity Cloudy Urine pH 6.0 Urine Specific [place] <=1.005 Urine Protein Negative mg/dL (NEG-TRACE) Urine Glucose (UA) Negative mg/dL (NEG) Urine Ketones (Stick) Negative mg/dL (NEG) Urine Blood Large (NEG) Urine Nitrite Negative (NEG) Urine Bilirubin Negative (NEG) Urine Urobilinogen Dipstick 0.2 mg/dL (0.2 mg/dL) Urine Leukocyte Esterase Negative (NEG) Urine RBC 6-10 /HPF (0-2) Urine WBC 1-4 /HPF (0-4) Urine Squamous Epithelial Cells Mod /LPF Urine Bacteria Moderate /HPF (0-FEW) Urine Opiates Screen Neg (NEG) Urine Methadone Screen Neg (NEG) Urine Barbiturates Neg (NEG) Urine Phencyclidine Screen Neg (NEG) Urine Amphetamine/Methamphetamine Neg (NEG) Urine Benzodiazepines Screen Pos (NEG) Urine Cocaine Screen Neg (NEG) Urine Cannabinoids Screen Pos (NEG) Urine Ethyl Alcohol Pos (NEG) POC Urine HCG, Qualitative Hcg negative (Negative) White Blood Count 8.2 x10^3/uL (4.0-11.0) Red Blood Count 4.58 x10^6/uL (3.50-5.40) Hemoglobin 12.6 g/dL (12.0-15.5) Hematocrit 37.0 % (36.0-47.0) Mean Corpuscular Volume 81 fL (79-100) Mean Corpuscular Hemoglobin 28 pg (25-35) Mean Corpuscular Hemoglobin Concent 34 g/dL (31-37) Red Cell Distribution Width 16.3 % (11.5-14.5) H Platelet Count 370 x10^3/uL (140-400) Neutrophils (%) (Auto) 50 % (31-73) Lymphocytes (%) (Auto) 42 % (24-48) Monocytes (%) (Auto) 6 % (0-9) Eosinophils (%) (Auto) 2 % (0-3) Basophils (%) (Auto) 1 % (0-3) Neutrophils # (Auto) 4.1 x10^3/uL (1.8-7.7) Lymphocytes # (Auto) 3.4 x10^3/uL (1.0-4.8) Monocytes # (Auto) 0.5 x10^3/uL (0.0-1.1) Eosinophils # (Auto) 0.2 x10^3/uL (0.0-0.7) Basophils # (Auto) 0.1 x10^3/uL (0.0-0.2) Sodium Level 142 mmol/L (136-145) Potassium Level 4.0 mmol/L (3.5-5.1) Chloride Level 104 mmol/L (98-107) Carbon Dioxide Level 28 mmol/L (21-32) Anion Gap 10 (6-14) Blood Urea Nitrogen 11 mg/dL (7-20) Creatinine 0.7 mg/dL (0.6-1.0) Estimated GFR (Cockcroft-Gault) 99.6 BUN/Creatinine Ratio 16 (6-20) Glucose Level 95 mg/dL (70-99) Calcium Level 9.2 mg/dL (8.5-10.1) Total Bilirubin 0.2 mg/dL (0.2-1.0) Aspartate Amino Transferase (AST) 19 U/L (15-37) Alanine Aminotransferase (ALT) 21 U/L (14-59) Alkaline Phosphatase 65 U/L (46-116) Total Protein 8.2 g/dL (6.4-8.2) Albumin 3.8 g/dL (3.4-5.0) Albumin/Globulin Ratio 0.9 (1.0-1.7) L Lipase 106 U/L (73-393) Ethyl Alcohol Level 126 mg/dL (0-10) H Laboratory Tests 11/06/18 01:25 Laboratory Tests 11/06/18 01:25 EKG EKG [] Radiology/Procedures Radiology/Procedures [] Impressions: PROCEDURE: CT ABDOMEN PELVIS WO CONTRAST CT abdomen and pelvis without contrast: Reason for examination: Low abdominal pain with hematuria and vomiting. Helical images were obtained through the abdomen and pelvis with no intravenous or oral contrast administered. Reconstruction was performed in sagittal and coronal planes. Exposure: One or more of the following individualized dose reduction techniques were utilized for this examination: 1. Automated exposure control 2. Adjustment of the mA and/or kV according to patient size 3. Use of iterative reconstruction technique. The lung bases are clear. The heart size is normal with no pericardial effusion seen. No abnormality seen at the liver, spleen, adrenal glands or pancreas. The gallbladder surgically absent. The abdominal aorta and inferior vena cava show no gross abnormalities. The kidneys show presence of multiple nonobstructing calculi bilaterally. There is however no hydronephrosis or evidence of obstructive uropathy. The stomach contains a large amount of gastric content but no wall thickening or obstruction. The small intestinal tract shows no abnormal dilatation or obstruction. No abnormality seen at the appendix. There is no evidence of diverticulosis or diverticulitis. There is no colitis. No abnormality seen at the bladder or uterus. No gross pelvic masses are seen. No free fluid or free air is seen in the abdomen or pelvis. No acute bony abnormalities are evident. IMPRESSION: Multiple nonobstructing renal calculi seen bilaterally. No hydronephrosis or obstructive uropathy evident. No other focal abnormality seen in the abdomen or pelvis. Electronically signed by: Kalpana Fuentes MD (11/06/2018 3:12 AM) [facility] Course & Med Decision Making Course & Med Decision Making Pertinent Labs and Imaging studies reviewed. (See chart for details) [] Dragon Disclaimer Dragon Disclaimer This electronic medical record was generated, in whole or in part, using a voice recognition dictation system. Departure Departure Impression: Primary Impression: Lower abdominal pain Additional Impressions: Nausea and vomiting Marijuana abuse Disposition: HOME, SELF-CARE Condition: STABLE Referrals: NO PCP (PCP) Patient Instructions: Abdominal Pain, Marijuana Abuse-Brief, Nausea and Vomiting Scripts Dicyclomine Hcl (DICYCLOMINE HCL) 20 Mg Tablet 1 TAB PO TID PRN for ABDOMINAL CRAMPING, #15 TAB Prov: RICCO DA SILVA Jr. DO 11/06/18 Metoclopramide Hcl (REGLAN) 10 Mg Tablet 1 TAB PO QID PRN for NAUSEA, #15 TAB Prov: RICCO DA SILVA Jr. DO 11/06/18 Tramadol Hcl (TRAMADOL HCL) 50 Mg Tablet 50 MG PO Q6HRS PRN for PAIN, #12 TAB Prov: RICCO DA SILVA Jr. DO 11/06/18 Problem Qualifiers Additional Impressions: Nausea and vomiting Vomiting type: unspecified Vomiting Intractability: non-intractable Qualified Codes: R11.2 - Nausea with vomiting, unspecified RICCO DA SILVA Jr. DO Nov 06, 2018 01:15
[2018-11-06 01:20] LABS: BILIRUBIN,URINE NEGATIVE (NEG); CLARITY,URINE CLOUDY; COLOR,URINE YELLOW; NITRITE,URINE NEGATIVE (NEG); PROTEIN,URINE NEGATIVE (NEG-TRACE); UROBILINOGEN,URINE 0.2 mg/dL (0.2 mg/dL)
[2018-11-06 01:24] LABS: SQUAMOUS EPITHELIAL CELL,UR MOD /LPF
[2018-11-06 01:25] LABS: BACTERIA,URINE MODERATE /HPF (0-FEW)
[2018-11-06 01:26] LABS: AMPHETAMINE/METHAMPHETAMINE NEG (NEG); BARBITURATES NEG (NEG); BENZODIAZEPINES POS (NEG); CANNABINOIDS POS (NEG); COCAINE NEG (NEG); METHADONE NEG (NEG); OPIATES NEG (NEG); PHENCYCLIDINE NEG (NEG)
[2018-11-06] MEDS ORDERED: ONDANSETRON PF 4 MG/2 ML VIAL. IV ONE (01:30)
[2018-11-06] MEDS ORDERED: IV NORMAL SALINE 1000ML BAG 1,000 ML IV SCH (01:30)
[2018-11-06] MEDS ORDERED: ADENOSINE 6 MG/2 ML VIAL. IV ONE (01:31)
[2018-11-06 01:32] LABS: BASO # 0.1 x10^3/uL (0.0-0.2); BASO % 1 % (0-3); EOS # 0.2 x10^3/uL (0.0-0.7); EOS % 2 % (0-3); HEMOGLOBIN 12.6 g/dL (12.0-15.5); LYMPH # 3.4 x10^3/uL (1.0-4.8); LYMPH % 42 % (24-48); MEAN CORPUSCULAR HEMOGLOBIN 28 pg (25-35); MEAN CORPUSCULAR HGB CONC 34 g/dL (31-37); MEAN CORPUSCULAR VOLUME 81 fL (79-100); MONO # 0.5 x10^3/uL (0.0-1.1); MONO % 6 % (0-9); NEUT # 4.1 x10^3/uL (1.8-7.7); NEUT % 50 % (31-73); PLATELET COUNT 370 x10^3/uL (140-400); RED BLOOD COUNT 4.58 x10^6/uL (3.50-5.40); RED CELL DISTRIBUTION WIDTH 16.3 % (11.5-14.5); WHITE BLOOD COUNT 8.2 x10^3/uL (4.0-11.0)
[2018-11-06 01:40] LABS: CALCIUM 9.2 mg/dL (8.5-10.1); CREATININE 0.7 mg/dL (0.6-1.0); GFR 99.6
[2018-11-06] MEDS: MORPHINE SULFATE 4 MG/ML VIAL. IV/SQ PRN ×2 (01:40→02:33)
[2018-11-06 01:46] LABS: ALBUMIN 3.8 g/dL (3.4-5.0); ALBUMIN/GLOBULIN RATIO 0.9 (1.0-1.7); TOTAL BILIRUBIN 0.2 mg/dL (0.2-1.0); TOTAL PROTEIN 8.2 g/dL (6.4-8.2)
[2018-11-06] MEDS ORDERED: diphenhydrAMINE 50 MG/ML VIAL IVP ONE (02:30)
[2018-11-06] MEDS ORDERED: METOCLOPRAMIDE HCL 10 MG/2 ML VIAL. IV ONE (02:30)
--- NOTE | 2018-11-06 03:15 | RAD ---
CT abdomen and pelvis without contrast: Reason for examination: Low abdominal pain with hematuria and vomiting. Helical images were obtained through the abdomen and pelvis with no intravenous or oral contrast administered. Reconstruction was performed in sagittal and coronal planes. Exposure: One or more of the following individualized dose reduction techniques were utilized for this examination: 1. Automated exposure control 2. Adjustment of the mA and/or kV according to patient size 3. Use of iterative reconstruction technique. The lung bases are clear. The heart size is normal with no pericardial effusion seen. No abnormality seen at the liver, spleen, adrenal glands or pancreas. The gallbladder surgically absent. The abdominal aorta and inferior vena cava show no gross abnormalities. The kidneys show presence of multiple nonobstructing calculi bilaterally. There is however no hydronephrosis or evidence of obstructive uropathy. The stomach contains a large amount of gastric content but no wall thickening or obstruction. The small intestinal tract shows no abnormal dilatation or obstruction. No abnormality seen at the appendix. There is no evidence of diverticulosis or diverticulitis. There is no colitis. No abnormality seen at the bladder or uterus. No gross pelvic masses are seen. No free fluid or free air is seen in the abdomen or pelvis. No acute bony abnormalities are evident. IMPRESSION: Multiple nonobstructing renal calculi seen bilaterally. No hydronephrosis or obstructive uropathy evident. No other focal abnormality seen in the abdomen or pelvis. Electronically signed by: Kalpana Fuentes MD (11/06/2018 3:12 AM) [facility]
--- NOTE | 2018-11-06 04:30 | RAD ---
Pelvic ultrasound: Reason for examination: Severe lower abdominal/pelvic pain. History of torsion. Transabdominal ultrasound examination of the pelvis was performed. No abnormality seen at the bladder. The uterus is normal in size measuring 9.9 x 5.0 x 4.2 cm in greatest dimension. No uterine mass is seen. Endometrium is not abnormally thickened at 6.6 mm. No free fluid is seen in the pelvis. Right ovary measures 2.8 x 3.7 x 2.3 cm in greatest dimension and shows normal vascular flow and no masses. Left ovary measures 2.7 x 4.0 x 1.9 cm in greatest dimension and shows normal vascular flow with no masses. IMPRESSION: No focal abnormality seen in the pelvis. Electronically signed by: Kalpana Fuentes MD (11/06/2018 4:27 AM) [facility]
[2018-11-06 04:37] VITALS: BP 135/75
[2018-11-06] MEDS ORDERED: DICY20TA3 PO (04:59)
[2018-11-06] MEDS ORDERED: TRAM50TA PO (04:59)
[2018-11-06] MEDS ORDERED: METO10TA81 PO (04:59)
[2018-11-06] MEDS ORDERED: DICYCLOMINE 20 MG/2 ML AMPUL. IM ONE (05:00)
== END 2018-11-06 05:02 | disposition home or self-care (01) ==
LOC: ER 00:54
DX: R10.30 Lower abdominal pain, unspecified (principal); R11.2 Nausea with vomiting, unspecified; F12.10 Cannabis abuse, uncomplicated; J45.909 Unspecified asthma, uncomplicated; Z88.6 Allergy status to analgesic agent; Z88.8 Allergy status to other drugs, medicaments and biological substances
CPT/HCPCS: 36415; 74176; 76856; 80053; 80307; 81001; 81025; 83690; 85025; 87086; 96361; 96372; 96374; 96375; 96376; 99285; G0480; J0153; J0500; J1200; J2270; J2405; J2765; J7030

== ENCOUNTER 2019-02-05 23:56 | Emergency (ER) | payer MEDICAID ==
[~2019-02-05] VITALS: Ht 170.2 cm; Wt 86.2 kg
[~2019-02-05 23:56] MED LIST changes: +DICY20TA3 PO; +METO10TA81 PO; +TRAM50TA PO
[2019-02-05 23:59] VITALS: BP 144/102
[2019-02-06] MEDS ORDERED: NAPROXEN 500 MG TABLET PO ONE (00:15)
[2019-02-06] MEDS ORDERED: ONDANSETRON ODT 4 MG TAB.RAPDIS. PO ONE (00:30)
[2019-02-06] MEDS ORDERED: ONDA4TAB11 PO (00:31)
[2019-02-06] MEDS ORDERED: HYDR-2761 PO (00:31)
--- NOTE | 2019-02-06 00:32 | PHYS DOC ---
Past Medical History Past Medical History: Anxiety, Asthma, Other Additional Past Medical Histor: PCOS (MAKENZIE HESS APRN) Past Surgical History: Cholecystectomy, Other Additional Past Surgical Histo: Exploratory Lap. for Poss. Ovarian Torsion, Biopsy (MAKENZIE HESS APRN) Smoking: Less than 1pk/day Alcohol Use: None Drug Use: None (MAKENZIE HESS APRN) Attending Signature I have participated in the care of this patient and I have reviewed and agree with all pertinent clinical information above including history, exam, and recommendations. (KE SALMON MD) Adult General Chief Complaint Chief Complaint: ANKLE PROBLEM HPI HPI Patient is a 28 year old female month who presents to the emergency department with complaints of right ankle pain. Patient states she injured her ankle approximately one week ago and was seen at [facility]. She was diagnosed with a possible fracture and placed in a boot at that facility. P atient states she is scheduled to have MRI of her ankle on February 10, 2019 to rule out a fracture. She has been taking hydrocodone 2 tabs every 6 hours as needed for pain but ran out of the medication 2 days ago. Patient states she had taken her walking boot off to air out her leg this evening and was using crutches to ambulate when she lost her balance and ended up twisting the ankle again. She currently rates her pain a 10 out of 10 on the pain scale she denies any alleviating factors, the pain increases with movement. All other ROS is neg unless otherwise noted in HPI. (MAKENZIE HESS APRN) Review of Systems Review of Systems See Above (MAKENZIE HESS APRN) Current Medications Current Medications Current Medications Medications (Trade) Dose Ordered Sig/Delmer Start Time Stop Time Status Last Admin Dose Admin Acetaminophen/ Hydrocodone Bitart (Lortab 5/325) 1 tab 1X ONCE 02/06/19 00:45 02/06/19 00:46 DC 02/06/19 00:35 1 TAB Naproxen (Naprosyn) 500 mg 1X ONCE 02/06/19 00:15 02/06/19 00:16 DC 02/06/19 00:23 500 MG Ondansetron HCl (Zofran Odt) 4 mg 1X ONCE 02/06/19 00:30 02/06/19 00:31 DC 02/06/19 00:23 4 MG (KE SALMON MD) Allergies Allergies Allergies Coded Allergies Type Severity Reaction Last Updated Verified haloperidol Allergy Severe 08/25/16 Yes ketorolac Allergy Intermediate Itching 08/25/16 Yes (KE SALMON MD) Physical Exam Physical Exam See Above Constitutional: Well developed, well nourished, no acute distress, non-toxic appearance. [] HENT: Normocephalic, atraumatic, bilateral external ears normal, oropharynx moist, no oral exudates, nose normal. [] Eyes: PERRLA, EOMI, conjunctiva normal, no discharge. [] Neck: Normal range of motion, no tenderness, supple, no stridor. [] Cardiovascular:Heart rate regular rhythm, no murmur [] Lungs & Thorax: Bilateral breath sounds clear to auscultation [] Abdomen: Bowel sounds normal, soft, no tenderness, no masses, no pulsatile masses. [] Skin: Warm, dry, no erythema, no rash; [] Extremities: Diffuse R ankle TTP, no cyanosis, no clubbing, ROM limited due to pain, 1+ edema R ankle and foot; 2+ pedal pulses RLE Neurologic: Alert and oriented X 3, no focal deficits noted. [] Psychologic: Affect normal, judgement normal, mood normal. [] (MAKENZIE HESS APRN) Current Patient Data Vital Signs Vital Signs Date Time Temp Pulse Resp B/P (MAP) Pulse Ox O2 Delivery O2 Flow Rate FiO2 02/06/19 00:35 17 98 Room Air 02/05/19 23:59 98.2 109 144/102 (116) 98.2 (KE SALMON MD) EKG EKG [] (MAKENZIE HESS APRN) Radiology/Procedures Radiology/Procedures PROCEDURE: ANKLE RIGHT 3V EXAM: AP, mortise and lateral views right ankle DATE: 02/06/2019 12:02 AM INDICATION: R ankle pain and reinjury unable to do flex extention COMPARISON: No Prior FINDINGS: Moderate soft tissue swelling about the right ankle. Ankle mortise is congruent. Talar dome is intact. No evidence of acute fracture or dislocation. IMPRESSION: 1. No evidence of acute ankle fracture or dislocation. 2. Soft tissue swelling about the right ankle. [] (MAKENZIE HESS APRN) Course & Med Decision Making Course & Med Decision Making Pertinent Labs and Imaging studies reviewed. (See chart for details) dx: Right ankle pain, swelling, and injury X-ray of the right ankle was negative for any acute fractures. Patient was given hydrocodone, naproxen, and sublingual Zofran in the emergency department for pain and nausea. Prescriptions written for hydrocodone and Zofran as patient reports that she is out of her hydrocodone at home. Patient was instructed to follow-up with her orthopedic doctor as planned, return to the ER symptoms worsen. Patient was also advised to wear the walking boot at all times when ambulating. Patient verbalized an understanding of home care, medications, follow-up, and return to ED instructions and was in agreement with the plan of care. [] (MAKENZIE HESS APRN) Dragon Disclaimer Dragon Disclaimer This electronic medical record was generated, in whole or in part, using a voice recognition dictation system. (MAKENZIE HESS APRN) Departure Departure Impression: Primary Impression: Pain and swelling of right ankle Additional Impressions: Injury of ankle, right Nausea Disposition: 01 HOME, SELF-CARE Condition: STABLE Referrals: NO PCP (PCP) Patient Instructions: Ankle Pain, Nausea, Adult Additional Instructions: Fill prescription(s) and use as directed. Recommend application of ice, elevation, and rest of affected extremity. Wear the boot that was provided for the prior ankle injury. Follow up with your orthopedic doctor as planned. Use your crutches for ambulation. Return to the ER if your symptoms worsen. Scripts Ondansetron Hcl (ONDANSETRON HCL) 4 Mg Tablet 1 TAB PO PRN Q6HRS PRN for NAUSEA/VOMITING for 3 Days, #10 TAB 0 Refills Prov: MAKENZIE HESS DIAL EQUIPMENT ENGINEER 02/06/19 Hydrocodone Bit/Acetaminophen (HYDROCODONE-APAP 5-325 ) 1 Tab Tablet 1 TAB PO PRN Q6HRS PRN for PAIN for 3 Days, #10 TAB 0 Refills Prov: MAKENZIE HESS DIAL EQUIPMENT ENGINEER 02/06/19 Problem Qualifiers Additional Impressions: Injury of ankle, right Encounter type: initial encounter Qualified Codes: S99.911A - Unspecified injury of right ankle, initial encounter MAKENZIE HESS APRN Feb 06, 2019 00:31 KE SALMON MD Feb 06, 2019 02:15
[2019-02-06] MEDS ORDERED: HYDROcodone/APAP 5/325MG 1 TAB TABLET PO ONE (00:45)
--- NOTE | 2019-02-06 00:47 | RAD ---
EXAM: AP, mortise and lateral views right ankle DATE: 02/06/2019 12:02 AM INDICATION: R ankle pain and reinjury unable to do flex extention COMPARISON: No Prior FINDINGS: Moderate soft tissue swelling about the right ankle. Ankle mortise is congruent. Talar dome is intact. No evidence of acute fracture or dislocation. IMPRESSION: 1. No evidence of acute ankle fracture or dislocation. 2. Soft tissue swelling about the right ankle. Electronically signed by: Arash Alvarado MD (02/06/2019 12:44 AM) [facility]
== END 2019-02-06 00:57 | disposition home or self-care (01) ==
LOC: ER 23:56
DX: S99.911A Unspecified injury of right ankle, initial encounter (principal); R11.0 Nausea; J45.909 Unspecified asthma, uncomplicated; F17.200 Nicotine dependence, unspecified, uncomplicated; Z88.6 Allergy status to analgesic agent; Z88.8 Allergy status to other drugs, medicaments and biological substances; X50.1XXA Overexertion from prolonged static or awkward postures, initial encounter; Y93.89 Activity, other specified; Y92.89 Other specified places as the place of occurrence of the external cause; Y99.8 Other external cause status
CPT/HCPCS: 73610; 99284; Q0162

== ENCOUNTER 2019-03-25 13:22 | Emergency (ER) | payer MEDICAID ==
[~2019-03-25 13:22] MED LIST changes: +HYDR-2761 PO; +ONDA-84 PO
[2019-03-25] MEDS ORDERED: NALBUPHINE 10 MG/ML AMPUL. IV STA (13:27)
[2019-03-25] MEDS ORDERED: IV NORMAL SALINE 1000ML BAG 1,000 ML IV SCH (13:27)
[2019-03-25] MEDS ORDERED: ONDANSETRON PF 4 MG/2 ML VIAL. IV ONE (13:30)
[2019-03-25 13:42] LABS: BASO # 0.1 x10^3/uL (0.0-0.2); BASO % 1 % (0-3); EOS # 0.1 x10^3/uL (0.0-0.7); EOS % 2 % (0-3); HEMOGLOBIN 12.1 g/dL (12.0-15.5); LYMPH # 2.8 x10^3/uL (1.0-4.8); LYMPH % 32 % (24-48); MEAN CORPUSCULAR HEMOGLOBIN 28 pg (25-35); MEAN CORPUSCULAR HGB CONC 34 g/dL (31-37); MEAN CORPUSCULAR VOLUME 83 fL (79-100); MONO # 0.4 x10^3/uL (0.0-1.1); MONO % 5 % (0-9); NEUT # 5.3 x10^3/uL (1.8-7.7); NEUT % 61 % (31-73); PLATELET COUNT 306 x10^3/uL (140-400); RED BLOOD COUNT 4.34 x10^6/uL (3.50-5.40); RED CELL DISTRIBUTION WIDTH 15.9 % (11.5-14.5); WHITE BLOOD COUNT 8.8 x10^3/uL (4.0-11.0)
[2019-03-25] MEDS ORDERED: BUTORPHANOL 2 MG/ML VIAL. IV ONE ×2 (13:45→14:30)
[2019-03-25 13:55] LABS: CALCIUM 8.7 mg/dL (8.5-10.1); CREATININE 0.6 mg/dL (0.6-1.0)
[2019-03-25 14:01] LABS: ALBUMIN/GLOBULIN RATIO 0.8 (1.0-1.7); TOTAL BILIRUBIN 0.1 mg/dL (0.2-1.0)
[2019-03-25 14:14] VITALS: BP 156/76
--- NOTE | 2019-03-25 14:30 | RAD ---
OB <14 WKS W/TV: 03/25/2019 1:27 PM INDICATION: 28 years old Female. with pelvic pain and vaginal bleeding. COMPARISON: None. TECHNIQUE: Transabdominal and transvaginal sonographic evaluation of the pelvis was performed. Grayscale, color Doppler and spectral waveform analysis were utilized. FINDINGS: UTERUS: Normal appearing gestational sac is identified with smooth margins. Single intrauterine gestation is identified with crown-rump length measuring 3.0 cm compatible gestational age of 9 weeks 6 days. Sonographic EDC 10/22/2019. heart tones measure 171 bpm. Yolk sac and gestational sac are visualized. Size: 12.1 x 7.6 x 6.2 cm. Masses: None. RIGHT OVARY: 3.5 x 2.5 x 1.9 cm. Ovary is normal in appearance. LEFT OVARY: 2.8 x 2.6 x 1.7 cm. Ovary is normal in appearance. Arterial and venous waveform are identified within the ovaries bilaterally at the time of imaging. FREE FLUID: Small volume free fluid is identified with echogenic debris. URINARY BLADDER: Unremarkable. IMPRESSION: Single viable intrauterine gestation is identified with crown-rump length compatible with gestational age of 9 weeks 6 days and EDC of 10/22/2019. heart tones measure 171 bpm. Small volume free fluid is identified with minimal complexity. Short-term follow-up evaluation is recommended given indeterminate etiology of these findings. No significant subchorionic hemorrhage is identified. Electronically signed by: Shanthi Humphrey MD (03/25/2019 2:26 PM) [facility]
[2019-03-25 14:37] LABS: BILIRUBIN,URINE NEGATIVE (NEG); CLARITY,URINE CLEAR; COLOR,URINE YELLOW; NITRITE,URINE NEGATIVE (NEG); PH,URINE 6.5; PROTEIN,URINE NEGATIVE (NEG-TRACE); UROBILINOGEN,URINE 0.2 mg/dL (0.2 mg/dL)
[2019-03-25] MEDS ORDERED: ONDA4TAB12 PO (14:43)
[2019-03-25] MEDS ORDERED: ACET-704 PO (14:43)
--- NOTE | 2019-03-25 14:45 | PHYS DOC ---
Past Medical History Past Medical History: Anxiety, Asthma, Bipolar, Other Additional Past Medical Histor: PCOS, PTSD Past Surgical History: Cholecystectomy, Other Additional Past Surgical Histo: Exploratory Lap. for Poss. Ovarian Torsion, Biopsy Alcohol Use: None Drug Use: None Adult General Chief Complaint Chief Complaint: ABDOMINAL PAIN IN HPI HPI Patient is a 28-year-old female who presents with complaint of acute onset of severe lower abdominal/pelvic pain that she states radiates to both sides. Patient states that she is approximately 9 weeks with possible when . Patient states that she was at her doctor's office when the pain became severe and she also indicates that she developed a small amount of bleeding. Patient was brought to ER via EMS due to the severity of pain. Patient states that she has also been nauseated but has had no vomiting. She rates her pain to be a 10 out of 10.[] Review of Systems Review of Systems Constitutional: Denies fever or chills [] Respiratory: Denies cough or shortness of breath [] Cardiovascular: No additional information not addressed in HPI [] GI: Complains of lower abdominal/pelvic pain without vomiting or diarrhea [] : Denies dysuria or hematuria [] Musculoskeletal: Denies back pain or joint pain [] Integument: Denies rash or skin lesions [] All other systems were reviewed and found to be within normal limits, except as documented in this note. Current Medications Current Medications Current Medications Medications (Trade) Dose Ordered Sig/Delmer Start Time Stop Time Status Last Admin Dose Admin Acetaminophen/ Codeine Phosphate (Tylenol #3) 1 tab 1X ONCE 03/25/19 15:00 03/25/19 15:01 DC 03/25/19 14:51 1 TAB Butorphanol Tartrate (Stadol) 1 mg 1X ONCE 03/25/19 14:30 03/25/19 14:31 DC 03/25/19 14:31 1 MG Nalbuphine HCl (Nubain) 10 mg 1X STAT 03/25/19 13:27 03/25/19 13:28 UNV Ondansetron HCl (Zofran) 4 mg 1X ONCE 03/25/19 13:30 03/25/19 13:31 DC 03/25/19 13:39 4 MG Sodium Chloride 1,000 ml @ 1,000 mls/hr Q1H 03/25/19 13:27 03/25/19 14:26 DC 03/25/19 13:39 1,000 MLS/HR Allergies Allergies Allergies Coded Allergies Type Severity Reaction Last Updated Verified haloperidol Allergy Severe 08/25/16 Yes ketorolac Allergy Intermediate Itching 08/25/16 Yes Physical Exam Physical Exam Constitutional: Well developed, well nourished, appears uncomfortable, non-toxic appearance. [] HENT: Normocephalic, atraumatic, bilateral external ears normal, oropharynx moist, no oral exudates, nose normal. [] Eyes: PERRLA, EOMI, conjunctiva normal, no discharge. [] Neck: Normal range of motion, no tenderness, supple. [] Cardiovascular: Regular rate and rhythm[] Lungs & Thorax: Bilateral breath sounds clear to auscultation [] Abdomen: Bowel sounds normal, soft, with suprapubic tenderness reported. [] Skin: Warm, dry, no erythema, no rash. [] Extremities: No tenderness, no cyanosis, no clubbing, ROM intact, no edema. [] Neurologic: Alert and oriented X 3, no focal deficits noted. [] Psychologic: Patient appears very anxious. [] Current Patient Data Vital Signs Vital Signs Date Time Temp Pulse Resp B/P (MAP) Pulse Ox O2 Delivery O2 Flow Rate FiO2 03/25/19 14:51 10 100 Room Air 03/25/19 14:14 94 156/76 (102) 03/25/19 13:23 98.9 98.9 Lab Values Laboratory Tests Test 03/25/19 13:29 03/25/19 14:20 White Blood Count 8.8 x10^3/uL (4.0-11.0) Red Blood Count 4.34 x10^6/uL (3.50-5.40) Hemoglobin 12.1 g/dL (12.0-15.5) Hematocrit 36.0 % (36.0-47.0) Mean Corpuscular Volume 83 fL (79-100) Mean Corpuscular Hemoglobin 28 pg (25-35) Mean Corpuscular Hemoglobin Concent 34 g/dL (31-37) Red Cell Distribution Width 15.9 % (11.5-14.5) H Platelet Count 306 x10^3/uL (140-400) Neutrophils (%) (Auto) 61 % (31-73) Lymphocytes (%) (Auto) 32 % (24-48) Monocytes (%) (Auto) 5 % (0-9) Eosinophils (%) (Auto) 2 % (0-3) Basophils (%) (Auto) 1 % (0-3) Neutrophils # (Auto) 5.3 x10^3/uL (1.8-7.7) Lymphocytes # (Auto) 2.8 x10^3/uL (1.0-4.8) Monocytes # (Auto) 0.4 x10^3/uL (0.0-1.1) Eosinophils # (Auto) 0.1 x10^3/uL (0.0-0.7) Basophils # (Auto) 0.1 x10^3/uL (0.0-0.2) Maternal Serum HCG Beta Subunit 67938 mIU/mL (0-5) H Sodium Level 135 mmol/L (136-145) L Potassium Level 4.0 mmol/L (3.5-5.1) Chloride Level 105 mmol/L (98-107) Carbon Dioxide Level 21 mmol/L (21-32) Anion Gap 9 (6-14) Blood Urea Nitrogen 8 mg/dL (7-20) Creatinine 0.6 mg/dL (0.6-1.0) Estimated GFR (Cockcroft-Gault) 119.0 BUN/Creatinine Ratio 13 (6-20) Glucose Level 91 mg/dL (70-99) Calcium Level 8.7 mg/dL (8.5-10.1) Total Bilirubin 0.1 mg/dL (0.2-1.0) L Aspartate Amino Transferase (AST) 11 U/L (15-37) L Alanine Aminotransferase (ALT) 13 U/L (14-59) L Alkaline Phosphatase 51 U/L (46-116) Total Protein 7.0 g/dL (6.4-8.2) Albumin 3.0 g/dL (3.4-5.0) L Albumin/Globulin Ratio 0.8 (1.0-1.7) L Urine Collection Type Void Urine Color Yellow Urine Clarity Clear Urine pH 6.5 Urine Specific Bessie 1.010 Urine Protein Negative mg/dL (NEG-TRACE) Urine Glucose (UA) Negative mg/dL (NEG) Urine Ketones (Stick) Negative mg/dL (NEG) Urine Blood Negative (NEG) Urine Nitrite Negative (NEG) Urine Bilirubin Negative (NEG) Urine Urobilinogen Dipstick 0.2 mg/dL (0.2 mg/dL) Urine Leukocyte Esterase Small (NEG) Urine RBC 0 /HPF (0-2) Urine WBC 1-4 /HPF (0-4) Urine Squamous Epithelial Cells Few /LPF Urine Bacteria Few /HPF (0-FEW) Urine Mucus Slight /LPF Laboratory Tests 03/25/19 13:29 Laboratory Tests 03/25/19 13:29 EKG EKG [] Radiology/Procedures Radiology/Procedures [] Impressions: PROCEDURE: OB <14 WKS W/TV OB <14 WKS W/TV: 03/25/2019 1:27 PM INDICATION: 28 years old Female. with pelvic pain and vaginal bleeding. COMPARISON: None. TECHNIQUE: Transabdominal and transvaginal sonographic evaluation of the pelvis was performed. Grayscale, color Doppler and spectral waveform analysis were utilized. FINDINGS: UTERUS: Normal appearing gestational sac is identified with smooth margins. Single intrauterine gestation is identified with crown-rump length measuring 3.0 cm compatible gestational age of 9 weeks 6 days. Sonographic EDC 10/22/2019. heart tones measure 171 bpm. Yolk sac and gestational sac are visualized. Size: 12.1 x 7.6 x 6.2 cm. Masses: None. RIGHT OVARY: 3.5 x 2.5 x 1.9 cm. Ovary is normal in appearance. LEFT OVARY: 2.8 x 2.6 x 1.7 cm. Ovary is normal in appearance. Arterial and venous waveform are identified within the ovaries bilaterally at the time of imaging. FREE FLUID: Small volume free fluid is identified with echogenic debris. URINARY BLADDER: Unremarkable. IMPRESSION: Single viable intrauterine gestation is identified with crown-rump length compatible with gestational age of 9 weeks 6 days and EDC of 10/22/2019. heart tones measure 171 bpm. Small volume free fluid is identified with minimal complexity. Short-term follow-up evaluation is recommended given indeterminate etiology of these findings. No significant subchorionic hemorrhage is identified. Electronically signed by: Shey Humphrey MD (03/25/2019 2:26 PM) [id number] DICTATED and SIGNED BY: SHEY HUMPHREY MD DATE: 03/25/19 142 Course & Med Decision Making Course & Med Decision Making Pertinent Labs and Imaging studies reviewed. (See chart for details) Patient moved to room upon arrival was evaluated by ER medical staff after which patient was given doses of pain medication and blood work was drawn. Patient sent for transvaginal ultrasound for further evaluation of . Findings of ultrasound have been reviewed with patient and are for the most part unremarkable. Patient has been complaining of severe pain since arrival, requesting additional dosing of pain medication. Of interest, when I went back in to inform patient of ultrasound findings, patient noticed to have no signs of pain on her face and was on her telephone. His dizziness patient saw me entering the room, her facial expression change rapidly and started moaning with pain again. Throughout remainder of patient visit, patient repeatedly requested additional pain medication. A plan was made for treatment with RhoGAM; however, patient indicated that she did not wish to wait for type and Rh to return and she would get a robe and shot at her OBs office on Thursday. Dragon Disclaimer Dragon Disclaimer This electronic medical record was generated, in whole or in part, using a voice recognition dictation system. Departure Departure Impression: Primary Impression: Abdominal pain during intrauterine Additional Impression: Drug-seeking behavior Disposition: HOME, SELF-CARE Condition: STABLE Referrals: NO PCP (PCP) Patient Instructions: Abdominal Pain During Scripts Ondansetron (ONDANSETRON ODT) 4 Mg Tab.rapdis 1 TAB PO PRN Q6-8HRS PRN for NAUSEA, #10 TAB Prov: RICCO DA SILVA Jr. DO 03/25/19 Acetaminophen With Codeine (TYLENOL WITH CODEINE #3 TABLET) 1 Each Tablet 1 TAB PO PRN Q6HRS PRN for PAIN, #8 TAB Prov: RICCO DA SILVA Jr. DO 03/25/19 Problem Qualifiers RICCO DA SILVA Jr. DO Mar 25, 2019 14:45
[2019-03-25 15:00] LABS: RBC,URINE 0 /HPF (0-2)
[2019-03-25] MEDS ORDERED: ACETAMINOPHEN/CODEINE 300/30MG TABLET. PO ONE (15:00)
[2019-03-25 15:01] LABS: BACTERIA,URINE FEW /HPF (0-FEW); SQUAMOUS EPITHELIAL CELL,UR FEW /LPF
== END 2019-03-25 15:10 | disposition home or self-care (01) ==
LOC: ER 13:22
DX: O26.891 Other specified pregnancy related conditions, first trimester (principal); R10.30 Lower abdominal pain, unspecified; Z76.5 Malingerer [conscious simulation]; O46.91 Antepartum hemorrhage, unspecified, first trimester; Z3A.09 9 weeks gestation of pregnancy; J45.909 Unspecified asthma, uncomplicated; O99.511 Diseases of the respiratory system complicating pregnancy, first trimester; O99.341 Other mental disorders complicating pregnancy, first trimester; F99 Mental disorder, not otherwise specified; F31.9 Bipolar disorder, unspecified; Z90.49 Acquired absence of other specified parts of digestive tract; Z88.6 Allergy status to analgesic agent; Z88.8 Allergy status to other drugs, medicaments and biological substances
CPT/HCPCS: 36415; 76801; 76817; 80053; 81001; 84702; 85025; 87086; 96374; 96375; 96376; 99285; J2405; J7030

== ENCOUNTER 2020-01-28 08:39 | Emergency (ER) | payer MEDICAID ==
[~2020-01-28] VITALS: Ht 170.2 cm; Wt 100.0 kg
[~2020-01-28 08:39] MED LIST changes: +ACET-704 PO; +ONDA4TAB12 PO
--- NOTE | 2020-01-28 09:22 | PHYS DOC ---
Past Medical History Past Medical History: Anxiety, Asthma, Bipolar, Other Additional Past Medical Histor: PCOS, PTSD Past Surgical History: Cholecystectomy, Other Additional Past Surgical Histo: Exploratory Lap. for Poss. Ovarian Torsion, Biopsy Smoking Status: Former Smoker Alcohol Use: None Drug Use: None General Adult EDM: Chief Complaint: ABDOMINAL PAIN HPI: HPI: History obtained from patient. Patient is a 29-year-old female with history of PCOS, gastritis, tobacco abuse who presents with chief complaint of epigastric abdominal discomfort. States it has been gradual onset for the past 3 weeks. She states that seems to have worsened over the past few days. She does not multiple episodes of vomiting each day. She does note that she has had some blood speckled in her vomit earlier today. Notes occasional marijuana usage. States that it does hurt worse when she breathes in. She does note history of cholecystectomy. States this does not feel similar to PCOS. Note she did have a laparoscopy several months ago for presumed ovarian torsion. States that was negative. Denies any history of oophorectomy or hysterectomy. States she delivered a baby 4 months ago. Denies chest pain or cough. Denies fevers. States that it is painful to vomit. Does note associated loose stool. Denies any recent antibiotics. Denies daily alcohol consumption. States the pain is sharp in nature nonradiating. No other complaints. Review of Systems: Review of Systems: Constitutional: Denies fever or chills. [] Eyes: Denies change in visual acuity. [] HENT: Denies nasal congestion or sore throat. [] Respiratory: Denies cough or shortness of breath. [] Cardiovascular: Denies chest pain or edema. [] GI: Positive for abdominal pain vomiting : Denies dysuria. [] Musculoskeletal: Denies back pain or joint pain. [] Integument: Denies rash. [] Neurologic: Denies headache, focal weakness or sensory changes. [] Endocrine: Denies polyuria or polydipsia. [] Lymphatic: Denies swollen glands. [] Psychiatric: Denies depression or anxiety. [] Heart Score: Risk Factors: Risk Factors: DM, Current or recent (<one month) smoker, HTN, HLP, family history of CAD, obesity. Risk Scores: Score 0 - 3: 2.5% MACE over next 6 weeks - Discharge Home Score 4 - 6: 20.3% MACE over next 6 weeks - Admit for Clinical Observation Score 7 - 10: 72.7% MACE over next 6 weeks - Early Invasive Strategies Allergies: Allergies: Allergies Coded Allergies Type Severity Reaction Last Updated Verified haloperidol Allergy Severe 08/25/16 Yes ketorolac Allergy Intermediate Itching 08/25/16 Yes Physical Exam: PE: Constitutional: Well developed, well nourished, no acute distress, non-toxic appearance. [] HENT: Normocephalic, atraumatic, bilateral external ears normal, oropharynx moist, no oral exudates, nose normal. [] Eyes: PERRLA, EOMI, conjunctiva normal, no discharge. [] Neck: Normal range of motion, no tenderness, supple, no stridor. [] Cardiovascular:Heart rate regular rhythm, no murmur [] Lungs & Thorax: Bilateral breath sounds clear to auscultation [] Abdomen: Abdomen with mild epigastric tenderness to palpation. No involuntary guarding or rigidity noted. No acute peritonitis. Skin: Warm, dry, no erythema, no rash. [] Back: No tenderness, no CVA tenderness. [] Extremities: No tenderness, no cyanosis, no clubbing, ROM intact, no edema. [] Neurologic: Alert and oriented X 3, normal motor function, normal sensory function, no focal deficits noted. [] Psychologic: Affect normal, judgement normal, mood normal. [] Current Patient Data: Labs: Laboratory Tests Test 01/28/20 09:25 01/28/20 10:00 01/28/20 10:12 White Blood Count 8.3 x10^3/uL Red Blood Count 4.87 x10^6/uL Hemoglobin 13.1 g/dL Hematocrit 39.3 % Mean Corpuscular Volume 81 fL Mean Corpuscular Hemoglobin 27 pg Mean Corpuscular Hemoglobin Concent 34 g/dL Red Cell Distribution Width 17.0 % Platelet Count 355 x10^3/uL Neutrophils (%) (Auto) 65 % Lymphocytes (%) (Auto) 27 % Monocytes (%) (Auto) 5 % Eosinophils (%) (Auto) 2 % Basophils (%) (Auto) 1 % Neutrophils # (Auto) 5.4 x10^3/uL Lymphocytes # (Auto) 2.2 x10^3/uL Monocytes # (Auto) 0.4 x10^3/uL Eosinophils # (Auto) 0.2 x10^3/uL Basophils # (Auto) 0.1 x10^3/uL Sodium Level 138 mmol/L Potassium Level 4.1 mmol/L Chloride Level 104 mmol/L Carbon Dioxide Level 24 mmol/L Anion Gap 10 Blood Urea Nitrogen 19 mg/dL Creatinine 0.7 mg/dL Estimated GFR (Cockcroft-Gault) 98.9 BUN/Creatinine Ratio 27 Glucose Level 104 mg/dL Calcium Level 9.0 mg/dL Total Bilirubin 0.3 mg/dL Aspartate Amino Transf (AST/SGOT) 16 U/L Alanine Aminotransferase (ALT/SGPT) 43 U/L Alkaline Phosphatase 68 U/L Total Protein 8.1 g/dL Albumin 3.7 g/dL Albumin/Globulin Ratio 0.8 Lipase 77 U/L Urine Collection Type Unknown Urine Color Yellow Urine Clarity Clear Urine pH 6.0 Urine Specific [employer] 1.020 Urine Protein Negative mg/dL Urine Glucose (UA) Negative mg/dL Urine Ketones (Stick) Negative mg/dL Urine Blood Negative Urine Nitrite Negative Urine Bilirubin Negative Urine Urobilinogen Dipstick 0.2 mg/dL Urine Leukocyte Esterase Negative Urine RBC 0 /HPF Urine WBC Occ /HPF Urine Squamous Epithelial Cells Few /LPF Urine Bacteria 0 /HPF Bedside Urine HCG, Qualitative Hcg negative Current Medications Medications (Trade) Dose Ordered Sig/Delmer Route PRN Reason Start Time Stop Time Status Last Admin Dose Admin Sodium Chloride 1,000 ml @ 1,000 mls/hr 1X ONCE IV 01/28/20 09:30 01/28/20 10:29 DC 01/28/20 09:35 Hydromorphone HCl (Dilaudid) 1 mg 1X ONCE IV/SQ 01/28/20 09:30 01/28/20 09:31 DC 01/28/20 09:41 Famotidine (Pepcid Vial) 20 mg 1X ONCE IV 01/28/20 09:30 01/28/20 09:31 DC 01/28/20 09:42 Metoclopramide HCl (Reglan Vial) 10 mg 1X ONCE IVP 01/28/20 09:30 01/28/20 09:31 DC 01/28/20 09:36 Pantoprazole Sodium (PROTONIX VIAL for IV PUSH) 40 mg 1X ONCE IVP 01/28/20 09:30 01/28/20 09:31 DC 01/28/20 09:38 Iohexol (Omnipaque 350 Mg/ml) 100 ml 1X ONCE IV 01/28/20 10:15 01/28/20 10:31 DC 01/28/20 10:37 Info (CONTRAST GIVEN -- Rx MONITORING) 1 each PRN DAILY PRN MC SEE COMMENTS 01/28/20 10:45 01/30/20 10:44 Fentanyl Citrate (Fentanyl 2ml Vial) 100 mcg 1X ONCE IVP 01/28/20 11:15 01/28/20 11:16 DC 01/28/20 11:33 EKG: EKG: [] Radiology/Procedures: Radiology/Procedures: [facility] [address] [place], [place] [id number] IMAGING REPORT Signed PATIENT: MATEO PECK ACCOUNT: [id number] : 1990 LOCATION: ER AGE: 29 SEX: F EXAM STATUS: PRE ER ORD. PHYSICIAN: ILANA THOMAS DO REASON: pleuritic epigastris abd pain. eval for PE PROCEDURE: CT ANGIO CHEST W ABD PEL W/ CT ANGIO CHEST W ABD PEL W/ Clinical Indication: Pleuritic pain. Epigastric pain. Abdominal pain. COMPARISON: CT abdomen pelvis 11/06/2018 TECHNIQUE: Multiple contiguous axial images were obtained throughout the chest, abdomen, and pelvis with the use of IV contrast. Axial images were reformatted into coronal and sagittal planes. MIP reconstructions were obtained. 100 mL Omnipaque 350 was administered. One or more of the following dose reduction techniques were utilized: Automated exposure control (AEC), Adjustment of mA and/or kV according to patient size, Use of iterative reconstruction technique such as ASiR, CT scan done according to ALARA and image gently/image wisely. Findings: The thyroid is symmetric. There is no axillary, mediastinal, or hilar adenopathy. The thoracic aorta diameter is normal. The cardiac size is normal. There is no pericardial effusion. The central airways are patent. No pulmonary mass or consolidation. No pleural effusion is observed. There is no pneumothorax. The liver, spleen, pancreas, and adrenal glands are unremarkable. Cholecystectomy. The kidneys are unremarkable. There is no significant mesenteric or retroperitoneal adenopathy identified. There is no evidence of free intraperitoneal fluid or pneumoperitoneum. Normal caliber large and small bowel. Mild colonic diverticulosis. Bladder is unremarkable. Uterus is present. There is no significant pelvic ascites. No significant iliac or inguinal adenopathy is identified. No acute osseous abnormality. IMPRESSION: 1. No evidence of pulmonary thromboembolic disease. 2. No acute intra-abdominal findings. 3. Cholecystectomy. Electronically signed by: Deepa Bustamante MD (01/28/2020 10:51 AM) [id number] DICTATED and SIGNED BY: DEEPA BUSTAMANTE MD DATE: 01/28/20 [id number] [] Course & Med Decision Making: Course & Med Decision Making Pertinent Labs and Imaging studies reviewed. (See chart for details) [] Patient is a 29-year-old female who presents with complaint of epigastric abdominal discomfort over the past 3 weeks. Initial vital signs unremarkable. Exam unremarkable noted above. CT imaging was obtained. No acute etiology to explain the patient's symptoms was identified. Basic labs were obtained were unremarkable. Urinalysis without evidence of infection. On repeat examination she is still experiencing some discomfort although improved. I did offer to obtain ultrasound imaging as this could be referred gynecologic pain. Patient is declining at this time. States she can get in easily to see her FURNITURE AR[employer]ANGER. She did speak with her FURNITURE ARRANGER on the phone who states that they can schedule an appointment for her in 1 week. Patient states she would prefer to follow-up with FURNITURE [facility]ER. I did explain that this could be ovarian pathology that we cannot fully exclude without ultrasound. She did express understanding. Repeat abdominal exam remains without involuntary guarding or peritonitis. Strict 12- 24 return precautions were discussed understood. She did tolerate p.o. Stable for discharge home. I provided verbal discharge instructions regarding their emergency department diagnosis. If you had any diagnostic studies ( Labs or Xray's, CAT scan, Ultrasound ) have your PCP (Primary Care Physician) review them with you since there may be results that require further follow up or investigation. Prognosis, expected clinical course, and return precautions were reviewed. I answered the patients questions and instructed them to return if any new or worsening symptoms develop. The patient expressed understanding of the instructions and reported that all of their questions had been answered. Dragon Disclaimer: Dragkelli Disclaimer: This electronic medical record was generated, in whole or in part, using a voice recognition dictation system. Departure Departure Impression: Primary Impression: Abdominal pain Qualified Codes: R10.13 - Epigastric pain Additional Impression: Nausea Disposition: 01 DC HOME SELF CARE/HOMELESS Condition: STABLE Referrals: NO PCP (PCP) Additional Instructions: Discharge Abdominal Pain Re-Check Precautions: I'm unsure of the specific cause of your abdominal pain. However, at this point I feel that you are low risk for a life threatening emergency and that discharge from the Emergency Department is safe. There is a very small possibility that you are just too early in your clinical course for our physical exam/labs/imaging to ascertain whether or not you have an emergent condition that could potentially cause permanent disability or be life threatening. As such, it is very important that you follow up with your primary doctor or return to the Emergency Department in 12-24 hours for re-assessment and further evaluation if clinically indicated. If you develop new or worsening symptoms then you should return to the Emergency Department immediately. Home Care Instructions: Abdominal Pain Many things may cause abdominal pain. Your ER visit might not show the exact reason you are having pain. In some cases, additional time is needed to dete rmine if the cause is serious. Therefore you may be told to go home and watch for any changes or worsening in your condition. Before that, we may not know if you need more testing, or if hospitalization or surgery is necessary. If its not something serious, the pain may go away without treatment or get better with simple things like avoiding certain foods or medications. In the ER, your doctor asks you questions, examines you and in some cases, may order tests. These help doctors decide if the pain is from something serious. Tests are not always done and may not provide a definite answer. There can still be a problem, even with no rmal test results. Abdominal pain may be caused by something serious (like appendicitis), which is not obvious right away. Because of this, another checkup is needed to make sure you are OK. It is VERY IMPORTANT to follow up for a repeat exam, especially if you have any symptoms that are not going away or are getting worse. We recommend that you RETURN TO THE EMERGENCY ROOM IN 8-12 HOURS to be rechecked. If you cannot, you may follow up with your primary care doctor or clinic. It is important that you follow all of the instructions below. RETURN TO THE EMERGENCY ROOM IMMEDIATELY IF: The pain does not go away or gets worse. You have a fever. You keep throwing up and cannot keep anything down. You pass bloody or black stools. You develop new symptoms. HOME CARE INSTRUCTIONS Come back to the ER (or see your doctor) in 8-12 hours. DO NOT take laxatives unless directed by your doctor. Avoid the use of alcohol Take pain medicine only as directed by your doctor. Only take [id number] or prescription medicine as directed by your doctor. Try a clear liquid diet (broth, tea, jello, water) for the next 12-24 hours. Slowly move to a bland diet as tolerated. Do not eat greasy, fatty or spicy foods. Once you start getting better, go back to a normal, healthy diet, slowly over a few days. DISCHARGE PT INSTRUCTIONS: YOU HAVE BEEN EVALUATED FOR ABDOMINAL PAIN. HOWEVER, WE ARE UNABLE TO PROVIDE A DEFINITE CAUSE OF YOUR SYMPTOMS. EVEN THOUGH YOUR TESTS MAY HAVE BEEN NORMAL, YOU STILL COULD HAVE A SERIOUS CAUSE FOR YOUR ABDOMINAL PAIN, INCLUDING APPENDICITIS. THE BEST TEST TO DETERMINE IF YOU HAVE A SERIOUS CAUSE IS RE-EXAMINATION OVER TIME. WE USED TO ADMIT PATIENTS TO THE HOSPITAL FOR THIS, BUT CAN NOW ALLOW YOU TO GO HOME, & RETURN TO OUR ER THE NEXT DAY FOR RE- EXAMINATION. THUS, WE WOULD LIKE YOU TO RETURN TO OUR ER TOMORROW FOR YOUR RE- EVALUATION. (IF YOUR SYMPTOMS HAVE GONE AWAY, THEN YOU DO NOT NEED TO RETURN.) IF YOUR SYMPTOMS GET WORSE BETWEEN NOW & THEN, YOU SHOULD RETURN IMMEDIATELY & NOT WAIT UNTIL TOMORROW. SYMPTOMS TO LOOK FOR WORSENING PAIN, HIGH FEVER, PERSISTENT VOMITING [NOT CONTROLLED BY MEDICINE], AND/OR OVERALL WORSENING OF YOUR CONDITION. Scripts Famotidine (PEPCID) 20 Mg Tablet 20 MG PO BID for 7 Days, #14 TAB Prov: ILANA THOMAS DO 01/28/20 Ondansetron Hcl (ZOFRAN) 4 Mg Tablet 1 TAB PO TID PRN PRN for NAUSEA, #9 TAB Prov: ILANA THOMAS DO 01/28/20 ILANA THOAMS DO Jan 28, 2020 09:22
[2020-01-28] MEDS ORDERED: METOCLOPRAMIDE HCL 10 MG/2 ML VIAL. IVP ONE (09:30)
[2020-01-28] MEDS ORDERED: FAMOTIDINE 20 MG/2 ML VIAL IV ONE (09:30)
[2020-01-28] MEDS ORDERED: HYDROmorphone 2 MG/ML VIAL IV/SQ ONE (09:30)
[2020-01-28] MEDS ORDERED: PANTOPRAZOLE IV PUSH 40 MG VIAL. IVP ONE (09:30)
[2020-01-28] MEDS ORDERED: IV NORMAL SALINE 1000ML BAG 1,000 ML IV ONE (09:30)
[2020-01-28 09:47] LABS: BASO # 0.1 x10^3/uL (0.0-0.2); BASO % 1 % (0-3); EOS # 0.2 x10^3/uL (0.0-0.7); EOS % 2 % (0-3); HEMATOCRIT 39.3 % (36.0-47.0); HEMOGLOBIN 13.1 g/dL (12.0-15.5); LYMPH # 2.2 x10^3/uL (1.0-4.8); LYMPH % 27 % (24-48); MEAN CORPUSCULAR HEMOGLOBIN 27 pg (25-35); MEAN CORPUSCULAR HGB CONC 34 g/dL (31-37); MEAN CORPUSCULAR VOLUME 81 fL (79-100); MONO # 0.4 x10^3/uL (0.0-1.1); MONO % 5 % (0-9); NEUT # 5.4 x10^3/uL (1.8-7.7); NEUT % 65 % (31-73); PLATELET COUNT 355 x10^3/uL (140-400); RED BLOOD COUNT 4.87 x10^6/uL (3.50-5.40); WHITE BLOOD COUNT 8.3 x10^3/uL (4.0-11.0)
[2020-01-28 09:54] LABS: CREATININE 0.7 mg/dL (0.6-1.0); GFR 98.9; POTASSIUM 4.1 mmol/L (3.5-5.1)
[2020-01-28 09:59] LABS: ALBUMIN 3.7 g/dL (3.4-5.0); ALBUMIN/GLOBULIN RATIO 0.8 (1.0-1.7); TOTAL BILIRUBIN 0.3 mg/dL (0.2-1.0); TOTAL PROTEIN 8.1 g/dL (6.4-8.2)
[2020-01-28] MEDS ORDERED: IOHEXOL 350 MG/ML 100 ML VIAL. IV ONE (10:15)
[2020-01-28 10:32] LABS: BILIRUBIN,URINE NEGATIVE (NEG); CLARITY,URINE CLEAR; COLOR,URINE YELLOW; NITRITE,URINE NEGATIVE (NEG); PROTEIN,URINE NEGATIVE (NEG-TRACE); UROBILINOGEN,URINE 0.2 mg/dL (0.2 mg/dL)
[2020-01-28 10:34] VITALS: BP 135/80
[2020-01-28 10:44] LABS: BACTERIA,URINE 0 /HPF (0-FEW); RBC,URINE 0 /HPF (0-2); WBC,URINE OCC /HPF (0-4)
[2020-01-28] MEDS ORDERED: CONTRAST GIVEN. MC PRN (10:45)
--- NOTE | 2020-01-28 10:54 | RAD ---
CT ANGIO CHEST W ABD PEL W/ Clinical Indication: Pleuritic pain. Epigastric pain. Abdominal pain. COMPARISON: CT abdomen pelvis 11/06/2018 TECHNIQUE: Multiple contiguous axial images were obtained throughout the chest, abdomen, and pelvis with the use of IV contrast. Axial images were reformatted into coronal and sagittal planes. MIP reconstructions were obtained. 100 mL Omnipaque 350 was administered. One or more of the following dose reduction techniques were utilized: Automated exposure control (AEC), Adjustment of mA and/or kV according to patient size, Use of iterative reconstruction technique such as ASiR, CT scan done according to ALARA and image gently/image wisely. Findings: The thyroid is symmetric. There is no axillary, mediastinal, or hilar adenopathy. The thoracic aorta diameter is normal. The cardiac size is normal. There is no pericardial effusion. The central airways are patent. No pulmonary mass or consolidation. No pleural effusion is observed. There is no pneumothorax. The liver, spleen, pancreas, and adrenal glands are unremarkable. Cholecystectomy. The kidneys are unremarkable. There is no significant mesenteric or retroperitoneal adenopathy identified. There is no evidence of free intraperitoneal fluid or pneumoperitoneum. Normal caliber large and small bowel. Mild colonic diverticulosis. Bladder is unremarkable. Uterus is present. There is no significant pelvic ascites. No significant iliac or inguinal adenopathy is identified. No acute osseous abnormality. IMPRESSION: 1. No evidence of pulmonary thromboembolic disease. 2. No acute intra-abdominal findings. 3. Cholecystectomy. Electronically signed by: Vladimir Tony MD (01/28/2020 10:51 AM) [id number]
[2020-01-28] MEDS ORDERED: fentaNYL PF VIAL 100 MCG/2 ML VIAL IVP ONE (11:15)
[2020-01-28] MEDS ORDERED: ONDA4TAB7 PO (11:39)
[2020-01-28] MEDS ORDERED: FAMO-63 PO (11:39)
== END 2020-01-28 11:56 | disposition home or self-care (01) ==
LOC: ER 08:39
DX: R10.13 Epigastric pain (principal); R11.2 Nausea with vomiting, unspecified; F31.9 Bipolar disorder, unspecified; J45.909 Unspecified asthma, uncomplicated; F41.9 Anxiety disorder, unspecified; F43.10 Post-traumatic stress disorder, unspecified; E28.2 Polycystic ovarian syndrome; Z90.49 Acquired absence of other specified parts of digestive tract; Z87.891 Personal history of nicotine dependence; Z88.6 Allergy status to analgesic agent; Z88.8 Allergy status to other drugs, medicaments and biological substances
CPT/HCPCS: 36415; 71275; 74177; 80053; 81001; 81025; 83690; 85025; 96361; 96374; 96375; 99285; C9113; J1170; J2765; J3010; J3490; J7030; Q9967

== ENCOUNTER 2020-02-04 17:17 | Emergency (ER) | payer MEDICAID ==
[~2020-02-04] VITALS: Ht 170.2 cm; Wt 110.0 kg
[~2020-02-04 17:17] MED LIST changes: +FAMO-63 PO; +ONDA4TAB7 PO
--- NOTE | 2020-02-04 18:22 | PHYS DOC ---
Past Medical History Past Medical History: Anxiety, Asthma, Bipolar, Other Additional Past Medical Histor: PCOS, PTSD (MOLLY DAVEY CLOTH LAYER) Past Surgical History: Cholecystectomy, Other Additional Past Surgical Histo: Exploratory Lap. for Poss. Ovarian Torsion, Biopsy (MOLLY DAVEY CLOTH LAYER) Smoking Status: Current Every Day Smoker Alcohol Use: None Drug Use: None (MOLLY DAVEY CLOTH LAYER) General Adult EDM: Chief Complaint: MECHANICAL FALL HPI: HPI: Patient is a 29 year old female who presents with states 30 minutes prior to states that she slipped and fell in her bathroom hitting her right ribs over her toilet seat chair and got whiplash to her neck but did not hit her head or her neck. She also hit her right forearm up against the possible sink but patient is unsure and there is a abrasion that extends from wrist up to the elbow and covers about the whole posterior forearm with a superficial abrasion and 2+ swelling and tenderness. She is asking for an IV with pain medication. Patient denies headache, dizziness, chest pain, shortness of air, fever, cough, abdominal pain, vomiting, diarrhea, focal weakness, numbness or tingling. Patient has a history of smoker, anxiety, asthma, bipolar, PCOS, PTSD, cholecystectomy. (MOLLY DAVEY CLOTH LAYER) Review of Systems: Review of Systems: Constitutional: Denies fever or chills. [] Eyes: Denies change in visual acuity. [] HENT: Denies nasal congestion or sore throat. [] Respiratory: Denies cough or shortness of breath. [] Cardiovascular: Denies chest pain or edema. [] GI: Denies abdominal pain, nausea, vomiting, bloody stools or diarrhea. [] : Denies dysuria. [] Musculoskeletal: Denies back pain or joint pain. [] Integument: Denies rash. [] Neurologic: Denies headache, focal weakness or sensory changes. [] Endocrine: Denies polyuria or polydipsia. [] Lymphatic: Denies swollen glands. [] Psychiatric: Denies depression or anxiety. [] (MOLLY DAVEY CLOTH LAYER) Heart Score: Risk Factors: Risk Factors: DM, Current or recent (<one month) smoker, HTN, HLP, family history of CAD, obesity. Risk Scores: Score 0 - 3: 2.5% MACE over next 6 weeks - Discharge Home Score 4 - 6: 20.3% MACE over next 6 weeks - Admit for Clinical Observation Score 7 - 10: 72.7% MACE over next 6 weeks - Early Invasive Strategies (MOLLY DAVEY APRN) Allergies: Allergies: Allergies Coded Allergies Type Severity Reaction Last Updated Verified haloperidol Allergy Severe 08/25/16 Yes ketorolac Allergy Intermediate Itching 08/25/16 Yes (MOLLY DAVEY APRN) Physical Exam: PE: Constitutional: Well developed, well nourished, no acute distress, non-toxic appearance. [] HENT: Normocephalic, atraumatic, bilateral external ears normal, oropharynx moist, no oral exudates, nose normal. [] Eyes: PERRLA, EOMI, conjunctiva normal, no discharge. [] Neck: Normal range of motion, focal bony spinal and to the right side tenderness, supple, no stridor. [] Cardiovascular:Heart rate regular rhythm, no murmur [] Lungs & Thorax: Bilateral breath sounds clear to auscultation. Right lower rib tenderness [] Abdomen: Bowel sounds normal, soft, no tenderness, no masses, no pulsatile masses. [] Skin: Warm, dry, no erythema, no rash. Right posterior forearm abrasion from wrist to elbow but does not cover any joints. [] Back: Cervical spine tenderness, no CVA tenderness. [] Extremities: Posterior forearm tenderness, no cyanosis, no clubbing, ROM intact, 2+ edema. [] Neurologic: Alert and oriented X 3, normal motor function, normal sensory function, no focal deficits noted. [] Psychologic: Affect normal, judgement normal, mood normal. [] (MOLLY DAVEY CLOTH LAYER) Current Patient Data: Vital Signs: Vital Signs Date Time Temp Pulse Resp B/P (MAP) Pulse Ox O2 Delivery O2 Flow Rate FiO2 02/04/20 17:55 97.9 110 18 154/103 (120) 99 Room Air 97.9 (MOLLY DAVEY APRN) EKG: EKG: [] (MOLLY DAVEY APRN) Radiology/Procedures: Radiology/Procedures: [] Impression: [facility] [address] [place] [address] IMAGING REPORT Signed PATIENT: MATEO PECK ACCOUNT: [id number] : 1990 LOCATION: ER AGE: 29 SEX: F EXAM STATUS: REG ER ORD. PHYSICIAN: MOLLY DAVEY APRN REASON: fall pain with abrasion and swelling PROCEDURE: WRIST 3V RIGHT Right forearm 2 views, right wrist 3 views. HISTORY: Fell, pain with abrasions and swelling Right forearm 2 views were taken of the right forearm. There is posterior soft tissue swelling. There is no acute fracture or osseous abnormality. Right wrist 3 views were taken of the right wrist. There is soft tissue swelling. There is not evidence of an acute fracture or osseous abnormality. IMPRESSION: 1. Posterior medial soft tissue swelling. 2. No acute fracture noted in the right wrist. 3. No acute fracture noted in the right forearm. Electronically signed by: Mati Garsia MD (02/04/2020 7:30 PM) [facility] DICTATED and SIGNED BY: MATI GARSIA MD DATE: 02/04/[id number] 0 [facility] [address] [place] [address] IMAGING REPORT Signed PATIENT: MATEO PECK ACCOUNT: [id number] : 1990 LOCATION: ER AGE: 29 SEX: F EXAM STATUS: REG ER ORD. PHYSICIAN: MOLLY DAVEY APRN REASON: fall pain with abrasion and swelling PROCEDURE: RIBS RIGHT AND PA CHEST Right RIBS with PA chest. HISTORY: Fell with pain PA view was taken of the chest. Lungs are clear. Heart is normal in size. There is no pleural effusion. AP and oblique views were taken of the right ribs. There is no acute fracture. There is no acute osseous abnormality. IMPRESSION: 1. No acute chest disease. 2. No acute right rib fracture noted. Electronically signed by: Mati Garsia MD (02/04/2020 7:34 PM) [facility] DICTATED and SIGNED BY: MATI GARSIA MD DATE: 02/04/[id number] 0 [facility] [address] [place] [address] IMAGING REPORT Signed PATIENT: MATEO PECK ACCOUNT: [id number] : 1990 LOCATION: ER AGE: 29 SEX: F EXAM STATUS: REG ER ORD. PHYSICIAN: MOLLY DAVEY APRN REASON: fall, neck pain, PT REFUSED TO REMOVE NOSE PIERCING PROCEDURE: CT HEAD AND CERVICAL SPINE WO CT scan of the head without contrast 02/04/2020 Clinical History: Fall with head injury. Technique: Unenhanced, contiguous, 5 mm axial sections were obtained through the head. One or more of the following individualized dose reduction techniques were utilized for this study: 1. Automated exposure control. 2. Adjustment of the mA and/or kV according to patient size. 3. Use of iterative reconstruction technique. Findings: Comparison study is dated 08/04/2018. The ventricles and sulci are within normal limits in size and configuration. No acute parenchymal abnormality is seen. No extra-axial fluid collection is noted. No skull fracture is seen. Impression: No acute intracranial abnormality is seen. CT scan of the cervical spine without contrast 02/04/2020 Clinical history: Fall with neck injury. Technique: Unenhanced, contiguous, 0.625 mm axial sections were obtained through the cervical spine. Axial, coronal and sagittal reconstructed images were obtained. One or more of the following individualized dose reduction techniques were utilized for this study: 1. Automated exposure control. 2. Adjustment of the mA and/or kV according to patient size. 3. Use of iterative reconstruction technique. Findings: Sagittal and coronal reconstructed images demonstrate minimal lateral curvature of the cervical spine, convex to the left. There is straightening of the normal cervical lordosis. No fracture or subluxation of the cervical vertebrae is seen. No significant degenerative changes are seen. Impression: No fracture or subluxation of the cervical vertebra is identified. Electronically signed by: Mike Lane MD (02/04/2020 8:35 PM) [id number] DICTATED and SIGNED BY: MIKE LANE MD DATE: 02/04/[id number] 0 (MOLLY DAVEY APRN) Course & Med Decision Making: Course & Med Decision Making Pertinent Labs and Imaging studies reviewed. (See chart for details) See HPI. No joint deformities, swelling or pain. Patient has full range of motion of all joints. There is no bruising or crepitus felt over the right ribs but there is tenderness to the lower right ribs. Lungs are clear to auscultation all lobes. Vital signs within normal limits. Speaks in full complete sentences. Ambulatory with a steady gait. Skin otherwise pink warm and dry. PERRLA. Alert and oriented x4. Focal bony spinal tenderness with palpation but there is no deformity or bruising or swelling. Patient is placed in a c-collar. Patient's head and face are atraumatic. Full range of motion of her neck but is painful with movement. Patient got a tetanus 6 months ago. X-ray shows no acute findings. Patient is placed in a francisco bandage and she to follow-up with orthopedics. She is also placed in an arm sling. Her abrasion is cleaned and antibiotic ointment is placed. Patient is also given a incentive spirometer. [] (MOLLY DAVEY APRN) Dragon Disclaimer: Dragon Disclaimer: This electronic medical record was generated, in whole or in part, using a voice recognition dictation system. (MOLLY DAVEY APRN) Departure Departure Impression: Primary Impression: Fall Qualified Codes: W19.XXXA - Unspecified fall, initial encounter Additional Impressions: Cervical spine pain Contusion Qualified Codes: S50.11XA - Contusion of right forearm, initial encounter Abrasion Rib pain on right side Disposition: 01 DC HOME SELF CARE/HOMELESS Condition: STABLE Referrals: NO PCP (PCP) CATHERINE HALL MD Patient Instructions: Abrasion, [id number], Cervical Sprain, Contusions- SportsMed, Fall Prevention and Home Safety, Incentive Spirometer, Rib Contusion Additional Instructions: Follow-up with orthopedics as soon as possible. Take medications as prescribed. 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 I was available for consultation as needed during the patient's visit in the emergency department. I agree with the clinical impression, plan, and disposition. (GIL MONREAL DO) MOLLY DAVEY APRN Feb 04, 2020 18:22 GIL MONREAL DO Feb 04, 2020 23:20
[2020-02-04] MEDS ORDERED: HYDROcodone/APAP 5/325MG 1 TAB TABLET PO ONE ×2 (18:45→20:00)
[2020-02-04] MEDS ORDERED: ONDANSETRON ODT 4 MG TAB.RAPDIS. PO ONE (18:45)
[2020-02-04] MEDS ORDERED: ORPHENADRINE CITRATE 60 MG/2 ML VIAL. IM ONE (18:45)
[2020-02-04 19:22] LABS: BILIRUBIN,URINE NEGATIVE (NEG); CLARITY,URINE CLEAR; COLOR,URINE YELLOW; NITRITE,URINE NEGATIVE (NEG); PROTEIN,URINE NEGATIVE (NEG-TRACE); UROBILINOGEN,URINE 0.2 mg/dL (0.2 mg/dL)
[2020-02-04 19:29] LABS: AMPHETAMINE/METHAMPHETAMINE NEG (NEG); BARBITURATES NEG (NEG); BENZODIAZEPINES POS (NEG); CANNABINOIDS POS (NEG); COCAINE NEG (NEG); METHADONE NEG (NEG); OPIATES NEG (NEG); PHENCYCLIDINE NEG (NEG)
[2020-02-04 19:30] LABS: BACTERIA,URINE FEW /HPF (0-FEW); RBC,URINE OCC /HPF (0-2)
--- NOTE | 2020-02-04 19:33 | RAD ---
Right forearm 2 views, right wrist 3 views. HISTORY: Fell, pain with abrasions and swelling Right forearm 2 views were taken of the right forearm. There is posterior soft tissue swelling. There is no acute fracture or osseous abnormality. Right wrist 3 views were taken of the right wrist. There is soft tissue swelling. There is not evidence of an acute fracture or osseous abnormality. IMPRESSION: 1. Posterior medial soft tissue swelling. 2. No acute fracture noted in the right wrist. 3. No acute fracture noted in the right forearm. Electronically signed by: Mati Garsia MD (02/04/2020 7:30 PM) [facility]
--- NOTE | 2020-02-04 19:37 | RAD ---
Right RIBS with PA chest. HISTORY: Fell with pain PA view was taken of the chest. Lungs are clear. Heart is normal in size. There is no pleural effusion. AP and oblique views were taken of the right ribs. There is no acute fracture. There is no acute osseous abnormality. IMPRESSION: 1. No acute chest disease. 2. No acute right rib fracture noted. Electronically signed by: Mati Garsia MD (02/04/2020 7:34 PM) [facility]
[2020-02-04] MEDS ORDERED: hydrOXYzine 25 MG TABLET PO ONE (20:00)
--- NOTE | 2020-02-04 20:37 | RAD ---
CT scan of the head without contrast 02/04/2020 Clinical History: Fall with head injury. Technique: Unenhanced, contiguous, 5 mm axial sections were obtained through the head. One or more of the following individualized dose reduction techniques were utilized for this study: 1. Automated exposure control. 2. Adjustment of the mA and/or kV according to patient size. 3. Use of iterative reconstruction technique. Findings: Comparison study is dated 08/04/2018. The ventricles and sulci are within normal limits in size and configuration. No acute parenchymal abnormality is seen. No extra-axial fluid collection is noted. No skull fracture is seen. Impression: No acute intracranial abnormality is seen. CT scan of the cervical spine without contrast 02/04/2020 Clinical history: Fall with neck injury. Technique: Unenhanced, contiguous, 0.625 mm axial sections were obtained through the cervical spine. Axial, coronal and sagittal reconstructed images were obtained. One or more of the following individualized dose reduction techniques were utilized for this study: 1. Automated exposure control. 2. Adjustment of the mA and/or kV according to patient size. 3. Use of iterative reconstruction technique. Findings: Sagittal and coronal reconstructed images demonstrate minimal lateral curvature of the cervical spine, convex to the left. There is straightening of the normal cervical lordosis. No fracture or subluxation of the cervical vertebrae is seen. No significant degenerative changes are seen. Impression: No fracture or subluxation of the cervical vertebra is identified. Electronically signed by: Mike Lane MD (02/04/2020 8:35 PM) [id number]
[2020-02-04] MEDS ORDERED: NEOMY/BACITR/POLYMYXIN OINT PACKET. TP ONE (20:45)
[2020-02-04] MEDS ORDERED: ORPH100T PO (20:47)
[2020-02-04] MEDS ORDERED: ACET1TAB33 PO (20:47)
[2020-02-04 21:17] VITALS: BP 110/63
[2020-02-04] MEDS ORDERED: MORPHINE SULFATE 2 MG/ML VIAL. IM ONE (21:30)
== END 2020-02-04 21:14 | disposition home or self-care (01) ==
LOC: ER 17:17
DX: S50.11XA Contusion of right forearm, initial encounter (principal); S20.311A Abrasion of right front wall of thorax, initial encounter; F41.9 Anxiety disorder, unspecified; M54.2 Cervicalgia; J45.909 Unspecified asthma, uncomplicated; F31.9 Bipolar disorder, unspecified; F17.200 Nicotine dependence, unspecified, uncomplicated; W01.0XXA Fall on same level from slipping, tripping and stumbling without subsequent striking against object, initial encounter; Y93.E8 Activity, other personal hygiene; Y92.091 Bathroom in other non-institutional residence as the place of occurrence of the external cause; Y99.8 Other external cause status
CPT/HCPCS: 70450; 71101; 72125; 73090; 73110; 80307; 81001; 81025; 87086; 96372; 99285; A4565; J2270; J2360